=== PATIENT | male | born 2000 | race Two or more races ===

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

== ENCOUNTER 2018-01-11 03:15 | Emergency (ER) | payer MEDICAID ==
[~2018-01-11] VITALS: Ht 193 cm; Wt 111.0 kg
[~2018-01-11 03:15] MED LIST changes: +ALBU8.5H8 INH
[2018-01-11 03:28] VITALS: BP 133/63
[2018-01-11] MEDS ORDERED: predniSONE 20 mg tablet PO ONE (04:15)
[2018-01-11] MEDS ORDERED: albuterol 2.5 MG/3 ML nebule NEB ONE (04:15)
[2018-01-11] MEDS ORDERED: levoFLOXACIN 750MG TABLET PO ONE (05:15)
[2018-01-11] MEDS ORDERED: PRED20TA PO (05:19)
[2018-01-11] MEDS ORDERED: LEVO500T2 PO (05:19)
== END 2018-01-11 05:59 | disposition home or self-care (01) ==
LOC: ER 03:16
DX: J18.9 Pneumonia, unspecified organism (principal); J45.909 Unspecified asthma, uncomplicated; F12.90 Cannabis use, unspecified, uncomplicated; Z79.899 Other long term (current) drug therapy
CPT/HCPCS: 71045; 94640; 94760; 99283; J7512

== ENCOUNTER 2018-03-14 02:40 | Emergency (ER) | payer MEDICAID ==
[~2018-03-14] VITALS: Ht 193 cm; Wt 102.3 kg
[2018-03-14 02:54] VITALS: BP 124/85
[2018-03-14] MEDS ORDERED: METH500T PO (03:22)
== END 2018-03-14 03:41 | disposition home or self-care (01) ==
LOC: ER 02:43
DX: S16.1XXA Strain of muscle, fascia and tendon at neck level, initial encounter (principal); S00.83XA Contusion of other part of head, initial encounter; J45.909 Unspecified asthma, uncomplicated; F12.90 Cannabis use, unspecified, uncomplicated; Z79.899 Other long term (current) drug therapy; W10.8XXA Fall (on) (from) other stairs and steps, initial encounter; Y93.89 Activity, other specified; Y92.89 Other specified places as the place of occurrence of the external cause; Y99.8 Other external cause status
CPT/HCPCS: 99283

== ENCOUNTER 2019-01-19 03:41 | Emergency (ER) | payer MEDICAID ==
[~2019-01-19] VITALS: Ht 182.9 cm; Wt 100.0 kg
[~2019-01-19 03:41] MED LIST changes: +METH500T PO
[2019-01-19 03:51] VITALS: BP 142/104
[2019-01-19] MEDS ORDERED: ketorolac trometh inj. 60 MG/2 ML VIAL IM ONE (04:10)
[2019-01-19] MEDS ORDERED: acetaminophen 325mg tablet PO ONE (05:25)
== END 2019-01-19 05:39 | disposition home or self-care (01) ==
LOC: ER 03:41
DX: R10.9 Unspecified abdominal pain (principal); R07.89 Other chest pain; J45.909 Unspecified asthma, uncomplicated; F12.90 Cannabis use, unspecified, uncomplicated; Z59.0 Homelessness; W17.89XA Other fall from one level to another, initial encounter; Y93.89 Activity, other specified; Y92.89 Other specified places as the place of occurrence of the external cause; Y99.8 Other external cause status
CPT/HCPCS: 71250; 74176; 93005; 96372; 99284; J1885

== ENCOUNTER 2019-03-14 20:29 | Emergency (ER) | payer MEDICAID ==
[~2019-03-14] VITALS: Ht 193 cm; Wt 106.8 kg
[2019-03-14] MEDS ORDERED: ibuprofen tablet 400 MG TABLET PO ONE (20:45)
[2019-03-14] MEDS ORDERED: LIDOcaine 1% w/epiNEPHrine 1:200,000 30ml vial IM ONE (20:50)
[2019-03-14] MEDS ORDERED: LIDOcaine 1% w/EPI 1:200,000 injection 10mL vial IM ONE (20:50)
--- NOTE | 2019-03-14 21:27 | NUR ---
breaking primary RN, Provider Ackerman is in with pt, placing sutures, pt is stable
[2019-03-14 21:59] VITALS: BP 140/67
== END 2019-03-14 22:01 | disposition home or self-care (01) ==
LOC: ER 20:29
DX: S61.412A Laceration without foreign body of left hand, initial encounter (principal); J45.909 Unspecified asthma, uncomplicated; F12.90 Cannabis use, unspecified, uncomplicated; Z59.0 Homelessness; Z79.899 Other long term (current) drug therapy; W25.XXXA Contact with sharp glass, initial encounter; Y93.89 Activity, other specified; Y92.89 Other specified places as the place of occurrence of the external cause; Y99.8 Other external cause status
CPT/HCPCS: 12052; 99284

== ENCOUNTER 2019-03-18 16:35 | Emergency (ER) | payer MEDICAID ==
[~2019-03-18] VITALS: Ht 193 cm; Wt 94.0 kg
[2019-03-18 16:39] VITALS: BP 113/74
[2019-03-18] MEDS ORDERED: CefTRIAXone 1000mg IM Kit (w/lidocaine diluent) IM ONE (16:50)
[2019-03-18] MEDS ORDERED: HYDROcodone/acetaminophen 5mg/325mg tablet PO ONE (16:50)
[2019-03-18] MEDS ORDERED: CEPH250T PO (16:51)
== END 2019-03-18 17:33 | disposition home or self-care (01) ==
LOC: ER 16:35
DX: L03.114 Cellulitis of left upper limb (principal); J45.909 Unspecified asthma, uncomplicated; F12.90 Cannabis use, unspecified, uncomplicated; Z79.899 Other long term (current) drug therapy; Z79.82 Long term (current) use of aspirin; Z56.0 Unemployment, unspecified
CPT/HCPCS: 96372; 99283; J0696

== ENCOUNTER 2019-03-23 16:51 | Emergency (ER) | payer MEDICAID ==
[~2019-03-23] VITALS: Ht 193 cm; Wt 94.0 kg
[~2019-03-23 16:51] MED LIST changes: +CEPH250T PO
[2019-03-23 18:33] VITALS: BP 121/67
== END 2019-03-23 18:05 | disposition home or self-care (01) ==
LOC: ER 16:51
DX: S61.412D Laceration without foreign body of left hand, subsequent encounter (principal); J45.909 Unspecified asthma, uncomplicated; F12.90 Cannabis use, unspecified, uncomplicated; Z59.0 Homelessness; Z91.018 Allergy to other foods; Z79.2 Long term (current) use of antibiotics; Z79.899 Other long term (current) drug therapy; W25.XXXD Contact with sharp glass, subsequent encounter
CPT/HCPCS: 99281; 99282

== ENCOUNTER 2019-06-03 11:38 | Emergency (ER) | payer MEDICAID ==
[~2019-06-03] VITALS: Ht 182.9 cm; Wt 90.9 kg
[~2019-06-03 11:38] MED LIST changes: -CEPH250T PO
[2019-06-03 12:12] VITALS: BP 141/95
== END 2019-06-03 13:51 | disposition home or self-care (01) ==
LOC: ER 11:40
DX: S90.31XA Contusion of right foot, initial encounter (principal); S09.90XA Unspecified injury of head, initial encounter; R10.13 Epigastric pain; J45.909 Unspecified asthma, uncomplicated; F17.200 Nicotine dependence, unspecified, uncomplicated; F12.90 Cannabis use, unspecified, uncomplicated; Z91.018 Allergy to other foods; Z79.899 Other long term (current) drug therapy; W18.2XXA Fall in (into) shower or empty bathtub, initial encounter; Y93.89 Activity, other specified; Y92.89 Other specified places as the place of occurrence of the external cause; Y99.8 Other external cause status
CPT/HCPCS: 70450; 73630; 99284

== ENCOUNTER 2019-07-02 22:25 | Emergency (ER) | payer MEDICAID ==
[~2019-07-02] VITALS: Ht 195.6 cm; Wt 113.6 kg
[2019-07-02 22:44] VITALS: BP 133/63
== END 2019-07-03 01:00 | disposition left against medical advice (07) ==
LOC: ER 22:55
DX: R06.02 Shortness of breath (principal); R06.00 Dyspnea, unspecified; Z53.21 Procedure and treatment not carried out due to patient leaving prior to being seen by health care provider
CPT/HCPCS: 93005

== ENCOUNTER 2019-07-14 22:31 | Emergency (ER) | payer MEDICAID ==
[~2019-07-14] VITALS: Ht 193 cm; Wt 102.3 kg
[2019-07-14] MEDS ORDERED: normal saline 1000ML IV soln IVB ONE (22:45)
[2019-07-14] MEDS ORDERED: ondansetron/PF 4mg/2ml inj IV ONE (22:45)
--- NOTE | 2019-07-14 22:53 | NUR ---
PT REPORTS BLACK TARRY STOOL APPROX 4 HRS AGO
[2019-07-14 23:26] LABS: ALANINE AMINOTRANSFERASE 26 U/L (12-78); ALBUMIN/GLOBULIN RATIO 0.9 (1.1-1.5); ALKALINE PHOSPHATASE 52 IU/L (46-116); ANION GAP 19 (8-16); ASPARTATE AMINO TRANSFERASE 28 U/L (10-37); BILIRUBIN,TOTAL 0.3 MG/DL (0.1-1.0); BLOOD UREA NITROGEN 14 MG/DL (7-18); BUN/CREATININE RATIO 15.7 (5.4-32.0); CALCIUM 9.1 MG/DL (8.5-10.1); CHLORIDE 103 MMOL/L (99-107); CREATININE 0.89 MG/DL (0.60-1.10); GLUCOSE 68 MG/DL (70-104); LIPASE 75 U/L (73-393); POTASSIUM 3.5 MMOL/L (3.5-5.1); SODIUM 141 MMOL/L (135-145); TOTAL CARBON DIOXIDE 19.5 MMOL/L (24-32); TOTAL PROTEIN 8.4 G/DL (6.4-8.2); eGFR > 90 ML/MIN
[2019-07-14 23:33] LABS: BASOPHILS # (AUTO) 0.1 X10'3 (0-0.2); BASOPHILS % (AUTO) 0.5 % (0-1); EOSINOPHILS # (AUTO) 0.1 X10'3 (0-0.9); EOSINOPHILS % (AUTO) 0.8 % (0-6); HEMATOCRIT 44.8 % (42.0-52.0); HEMOGLOBIN 15.3 g/dl (14.0-17.9); LYMPHOCYTES # (AUTO) 1.4 X10'3 (1.1-4.8); LYMPHOCYTES % (AUTO) 7.6 % (21-51); MEAN CORPUSCULAR HGB CONC 34.1 g/dL (33.0-36.5); MEAN CORPUSCULAR VOLUME 87.8 FL (78-98); MEAN PLATELET VOLUME 8.1 FL (7.4-10.4); MONOCYTES % (AUTO) 5.2 % (2-12); NEUTROPHILS % (AUTO) 85.9 % (42-75); PLATELET COUNT 251 X10'3 (140-440); RED CELL DISTRIBUTION WIDTH 14.9 % (11.5-14.5); WHITE BLOOD COUNT 18.6 X10'3 (4.5-11.0)
[2019-07-15] MEDS ORDERED: ONDA8TAB13 PO (00:10)
[2019-07-15 00:25] VITALS: BP 127/74
== END 2019-07-15 00:33 | disposition home or self-care (01) ==
LOC: ER 22:31
DX: E86.0 Dehydration (principal); R10.84 Generalized abdominal pain; J45.909 Unspecified asthma, uncomplicated; K92.0 Hematemesis; Z91.018 Allergy to other foods
CPT/HCPCS: 36415; 74176; 80053; 83690; 85025; 96374; 99284; J2405; J7030

== ENCOUNTER 2019-07-22 16:21 | Emergency (ER) | payer MEDICAID ==
[~2019-07-22] VITALS: Ht 185.4 cm; Wt 90.0 kg
[~2019-07-22 16:21] MED LIST changes: +ONDA8TAB13 PO
[2019-07-22 16:28] VITALS: BP 147/78
== END 2019-07-22 19:30 | disposition left against medical advice (07) ==
LOC: ER 16:22
DX: Z53.21 Procedure and treatment not carried out due to patient leaving prior to being seen by health care provider (principal)

== ENCOUNTER 2019-07-25 05:53 | Emergency (ER) | payer MEDICAID ==
[~2019-07-25] VITALS: Ht 193 cm; Wt 100.0 kg
[2019-07-25 05:54] VITALS: BP 140/63
[2019-07-25] MEDS ORDERED: DOXY100C43 PO (06:10)
[2019-07-25] MEDS ORDERED: PRED20TA PO (06:10)
[2019-07-25] MEDS ORDERED: ALBU18HF2 INH (06:10)
== END 2019-07-25 06:27 | disposition home or self-care (01) ==
LOC: ER 05:54
DX: J06.9 Acute upper respiratory infection, unspecified (principal); J45.901 Unspecified asthma with (acute) exacerbation; Z59.0 Homelessness; Z72.89 Other problems related to lifestyle; Z91.018 Allergy to other foods; Z79.899 Other long term (current) drug therapy
CPT/HCPCS: 99283

== ENCOUNTER 2019-08-01 23:18 | Emergency (ER) | payer MEDICAID ==
[~2019-08-01] VITALS: Ht 182.9 cm; Wt 81.8 kg
[~2019-08-01 23:18] MED LIST changes: +ALBU18HF2 INH; +DOXY100C43 PO
[2019-08-01 23:23] VITALS: BP 114/61
[2019-08-01] MEDS ORDERED: ALBU8.5H8 IH (23:29)
[2019-08-01] MEDS ORDERED: dexamethasone 4mg tablet PO ONE (23:30)
== END 2019-08-01 23:49 | disposition home or self-care (01) ==
LOC: ER 23:18
DX: J45.909 Unspecified asthma, uncomplicated (principal); Z91.018 Allergy to other foods
CPT/HCPCS: 93005; 99283

== ENCOUNTER 2019-09-05 21:34 | Emergency (ER) | payer MEDICAID ==
[~2019-09-05 21:34] MED LIST changes: +ALBU8.5H8 IH; -DOXY100C43 PO
--- NOTE | 2019-09-05 21:45 | NUR ---
Pt observed by this physician underwriter walk out of ED after using ED lobby restroom. This physician underwriter followed Pt out of building and called Pt by name. Pt ignored calls from this physician underwriter and proceeded to cross [facility] and continued to walk off down the street.
== END 2019-09-05 21:45 | disposition left against medical advice (07) ==
LOC: ER 21:35
DX: J45.909 Unspecified asthma, uncomplicated (principal); Z53.21 Procedure and treatment not carried out due to patient leaving prior to being seen by health care provider

== ENCOUNTER 2019-09-08 06:24 | Emergency (ER) | payer MEDICAID ==
[2019-09-09] MEDS ORDERED: ONDA4TAB6 PO (19:24)
[2019-09-09] MEDS ORDERED: ALBU6.7H9 INH (19:24)
== END 2019-09-08 06:40 | disposition left against medical advice (07) ==
LOC: ER 06:24
DX: Z00.8 Encounter for other general examination (principal); Z53.21 Procedure and treatment not carried out due to patient leaving prior to being seen by health care provider

== ENCOUNTER 2019-09-09 17:25 | Emergency (ER) | payer MEDICAID ==
[~2019-09-09] VITALS: Ht 188 cm; Wt 105.0 kg
[2019-09-09 17:28] VITALS: BP 133/62
[2019-09-09] MEDS ORDERED: normal saline 1000ML IV soln IVB ONE (18:40)
[2019-09-09] MEDS ORDERED: ondansetron/PF 4mg/2ml inj IV ONE (18:40)
[2019-09-09] MEDS ORDERED: ipratropium/albuterol 3ml nebule NEB ONE (18:40)
[2019-09-09] MEDS ORDERED: methylPREDNISolone sod succ 125mg/2ml vial IV ONE (18:40)
[2019-09-09 18:52] LABS: BASOPHILS # (AUTO) 0.1 X10'3 (0-0.2); BASOPHILS % (AUTO) 0.8 % (0-1); EOSINOPHILS % (AUTO) 0.6 % (0-6); HEMATOCRIT 44.1 % (42.0-52.0); HEMOGLOBIN 14.8 g/dl (14.0-17.9); LYMPHOCYTES % (AUTO) 12.4 % (21-51); MEAN CORPUSCULAR HEMOGLOBIN 29.9 PG (27.0-31.0); MEAN CORPUSCULAR HGB CONC 33.6 g/dL (33.0-36.5); MEAN CORPUSCULAR VOLUME 89.2 FL (78-98); MEAN PLATELET VOLUME 7.8 FL (7.4-10.4); MONOCYTES # (AUTO) 0.6 X10'3 (0-0.9); MONOCYTES % (AUTO) 7.4 % (2-12); NEUTROPHILS # (AUTO) 6.4 X10'3 (1.8-7.7); NEUTROPHILS % (AUTO) 78.8 % (42-75); PLATELET COUNT 252 X10'3 (140-440); RED BLOOD COUNT 4.94 X10'6 (4.70-6.10); RED CELL DISTRIBUTION WIDTH 15.8 % (11.5-14.5); WHITE BLOOD COUNT 8.1 X10'3 (4.5-11.0)
--- NOTE | 2019-09-09 18:57 | NUR ---
MEDICATIONS PULLED AND HANDED OFF TO Joaquin CONTEH RN
[2019-09-09 19:08] LABS: ALANINE AMINOTRANSFERASE 27 U/L (12-78); ALBUMIN/GLOBULIN RATIO 0.9 (1.1-1.5); ALKALINE PHOSPHATASE 62 IU/L (46-116); ANION GAP 14 (8-16); ASPARTATE AMINO TRANSFERASE 34 U/L (10-37); BILIRUBIN,TOTAL 0.7 MG/DL (0.1-1.0); BLOOD UREA NITROGEN 8 MG/DL (7-18); BUN/CREATININE RATIO 9.5 (5.4-32.0); CALCIUM 10.3 MG/DL (8.5-10.1); CHLORIDE 101 MMOL/L (99-107); CREATININE 0.84 MG/DL (0.60-1.10); GLUCOSE 99 MG/DL (70-104); POTASSIUM 3.9 MMOL/L (3.5-5.1); SODIUM 139 MMOL/L (135-145); TOTAL CARBON DIOXIDE 24.1 MMOL/L (24-32); TOTAL PROTEIN 8.4 G/DL (6.4-8.2); eGFR > 90 ML/MIN
[2019-09-09] MEDS ORDERED: ONDA4TAB6 PO (19:24)
[2019-09-09] MEDS ORDERED: ALBU6.7H9 INH (19:24)
== END 2019-09-09 19:30 | disposition home or self-care (01) ==
LOC: ER 17:26
DX: J45.909 Unspecified asthma, uncomplicated (principal); B34.9 Viral infection, unspecified; R11.2 Nausea with vomiting, unspecified; F17.200 Nicotine dependence, unspecified, uncomplicated; Z72.89 Other problems related to lifestyle; Z59.0 Homelessness; Z91.018 Allergy to other foods; Z79.899 Other long term (current) drug therapy
CPT/HCPCS: 36415; 71046; 80053; 85025; 94640; 96374; 96375; 99284; J2405; J2930; J7030; 94760; 96361

== ENCOUNTER 2020-05-30 04:34 | Emergency (ER) | payer MEDICAID ==
[~2020-05-30] VITALS: Ht 193 cm; Wt 104.5 kg
[~2020-05-30 04:34] MED LIST changes: +ALBU6.7H9 INH; +ONDA4TAB6 PO
[2020-05-30 04:37] VITALS: BP 164/104
[2020-05-30] MEDS ORDERED: normal saline 1000ML IV soln IVB ONE (04:45)
[2020-05-30] MEDS ORDERED: proCHLORperazine 10 MG/2 ml inj IV ONE (04:45)
[2020-05-30 04:58] LABS: BASOPHILS % (AUTO) 0.6 % (0-1); EOSINOPHILS % (AUTO) 0.3 % (0-6); HEMATOCRIT 45.1 % (42.0-52.0); HEMOGLOBIN 15.3 g/dl (14.0-17.9); LYMPHOCYTES # (AUTO) 1.1 X10'3 (1.1-4.8); MEAN CORPUSCULAR HEMOGLOBIN 30.4 PG (27.0-31.0); MEAN CORPUSCULAR VOLUME 89.6 FL (78-98); MONOCYTES # (AUTO) 0.4 X10'3 (0-0.9); NEUTROPHILS # (AUTO) 5.6 X10'3 (1.8-7.7); NEUTROPHILS % (AUTO) 79.1 % (42-75); PLATELET COUNT 260 X10'3 (140-440); RED BLOOD COUNT 5.04 X10'6 (4.70-6.10)
[2020-05-30] MEDS ORDERED: haloperidol lactate 5mg/ml inj IM ONE (05:05)
[2020-05-30] MEDS ORDERED: diphenhydrAMINE 50 mg/ml inj IV ONE (05:05)
[2020-05-30 05:15] LABS: ALANINE AMINOTRANSFERASE 31 U/L (12-78); ALBUMIN 4.3 G/DL (3.4-5.0); ALKALINE PHOSPHATASE 56 IU/L (46-116); ANION GAP 19 (8-16); ASPARTATE AMINO TRANSFERASE 36 U/L (10-37); BILIRUBIN,TOTAL 0.6 MG/DL (0.1-1.0); BLOOD UREA NITROGEN 11 MG/DL (7-18); BUN/CREATININE RATIO 12.9 (5.4-32.0); CALCIUM 9.4 MG/DL (8.5-10.1); CHLORIDE 100 MMOL/L (99-107); CREATININE 0.85 MG/DL (0.60-1.10); GLUCOSE 106 MG/DL (70-104); LIPASE 95 U/L (73-393); POTASSIUM 3.8 MMOL/L (3.5-5.1); SODIUM 139 MMOL/L (135-145); TOTAL CARBON DIOXIDE 20.3 MMOL/L (24-32); TOTAL PROTEIN 8.6 G/DL (6.4-8.2); eGFR > 90 ML/MIN
== END 2020-05-30 05:35 | disposition home or self-care (01) ==
LOC: ER 04:34
DX: R11.2 Nausea with vomiting, unspecified (principal); R10.30 Lower abdominal pain, unspecified; J45.909 Unspecified asthma, uncomplicated; F17.200 Nicotine dependence, unspecified, uncomplicated; F12.90 Cannabis use, unspecified, uncomplicated; Z72.89 Other problems related to lifestyle; Z59.0 Homelessness; Z91.018 Allergy to other foods; Z79.899 Other long term (current) drug therapy
CPT/HCPCS: 36415; 80053; 83690; 85025; 96374; 99283; J0780; J7030

== ENCOUNTER 2022-03-12 16:42 | Emergency (ER) | payer MEDICAID ==
[~2022-03-12 16:42] MED LIST changes: +ALBU6.7H14 INH; -ALBU6.7H9 INH; +ALBU8.5H17 IH; +ALBU8.5H17 INH; -ALBU8.5H8 IH; -ALBU8.5H8 INH
== END 2022-03-12 21:21 | disposition left against medical advice (07) ==
LOC: ER 16:43
DX: R10.9 Unspecified abdominal pain (principal); Z53.21 Procedure and treatment not carried out due to patient leaving prior to being seen by health care provider

== ENCOUNTER 2022-03-29 06:56 | Emergency (ER) | payer MEDICAID | END 2022-03-29 08:06 | disposition left against medical advice (07) | LOC: ER 06:57 | DX: M79.89 Other specified soft tissue disorders (principal); Z53.21 Procedure and treatment not carried out due to patient leaving prior to being seen by health care provider ==

== ENCOUNTER 2022-04-06 11:52 | Emergency (ER) | payer MEDICAID ==
[~2022-04-06] VITALS: Ht 193 cm; Wt 152.3 kg
[2022-04-06 12:34] VITALS: BP 133/83
[2022-04-06] MEDS ORDERED: TETanus/Pertussis (Acell)/Diphther VAC/PF (Tdap-Adult) 0.5ml syringe IMVAC ONE (12:45)
[2022-04-06] MEDS ORDERED: LIDOCAINE 1%/EPI 1:100,000 inj. 10 ML multi-dose vial IJ ONE (12:47)
== END 2022-04-06 17:11 | disposition left against medical advice (07) ==
LOC: ER 11:52
DX: K04.7 Periapical abscess without sinus (principal); J45.909 Unspecified asthma, uncomplicated; F12.90 Cannabis use, unspecified, uncomplicated; Z91.018 Allergy to other foods; Z59.00 Homelessness unspecified
CPT/HCPCS: 99281

== ENCOUNTER 2022-04-06 21:47 | Emergency (ER) | payer MEDICAID ==
[~2022-04-06] VITALS: Ht 193 cm; Wt 150.0 kg
[2022-04-06 22:29] VITALS: BP 137/88
== END 2022-04-07 03:36 | disposition left against medical advice (07) ==
LOC: ER 21:48
DX: L02.01 Cutaneous abscess of face (principal); Z53.21 Procedure and treatment not carried out due to patient leaving prior to being seen by health care provider

== ENCOUNTER 2023-08-25 06:25 | Emergency (ER) | payer MEDICAID ==
[~2023-08-25] VITALS: Ht 193 cm; Wt 139.9 kg
[~2023-08-25 06:25] MED LIST changes: +CHLO25CA10 PO; +IBUP-1986 PO
[2023-08-25 06:34] VITALS: BP 144/87; PULSE 80; RESP 16; TEMP 98; O2SAT 96
== END 2023-08-25 06:57 | disposition home or self-care (01) ==
LOC: ER 06:27
DX: F10.129 Alcohol abuse with intoxication, unspecified (principal); J45.909 Unspecified asthma, uncomplicated; F12.90 Cannabis use, unspecified, uncomplicated; Z91.018 Allergy to other foods; Z79.899 Other long term (current) drug therapy; Z79.1 Long term (current) use of non-steroidal anti-inflammatories (NSAID); Y90.9 Presence of alcohol in blood, level not specified
CPT/HCPCS: 99281

== ENCOUNTER 2024-04-13 17:43 | Emergency (ER) | payer MEDICAID ==
[~2024-04-13 17:43] MED LIST changes: +ACAM333T8 PO; -ALBU18HF2 INH; -ALBU6.7H14 INH; -ALBU8.5H17 IH; -ALBU8.5H17 INH; -CHLO25CA10 PO; -IBUP-1986 PO; -METH500T PO; -ONDA4TAB6 PO; -ONDA8TAB13 PO; -PRED20TA PO
== END 2024-04-13 18:55 | disposition left against medical advice (07) ==
LOC: ER 17:44
DX: R10.84 Generalized abdominal pain (principal); Z53.21 Procedure and treatment not carried out due to patient leaving prior to being seen by health care provider

== ENCOUNTER 2024-04-16 18:11 | Emergency (ER) | payer MEDICAID ==
[~2024-04-16] VITALS: Ht 193 cm; Wt 136.4 kg
[2024-04-16] MEDS ORDERED: DOXY100C43 PO (18:56)
[2024-04-16 19:06] VITALS: BP 130/78; PULSE 88; RESP 16; TEMP 98.2; O2SAT 99
== END 2024-04-16 19:08 | disposition home or self-care (01) ==
LOC: ER 18:11
DX: L73.9 Follicular disorder, unspecified (principal); F10.129 Alcohol abuse with intoxication, unspecified; L03.811 Cellulitis of head [any part, except face]; R22.0 Localized swelling, mass and lump, head; J45.909 Unspecified asthma, uncomplicated; Z88.8 Allergy status to other drugs, medicaments and biological substances; Z59.00 Homelessness unspecified; Z91.018 Allergy to other foods
CPT/HCPCS: 99283

== ENCOUNTER 2024-04-23 06:14 | Emergency (ER) | payer MEDICAID ==
[~2024-04-23] VITALS: Ht 193 cm; Wt 141.6 kg
[~2024-04-23 06:14] MED LIST changes: +DOXY100C43 PO
[2024-04-23 06:17] VITALS: BP 191/97; PULSE 95; RESP 18; O2SAT 95
[2024-04-23 13:54] VITALS: TEMP 98.1
== END 2024-04-23 13:55 | disposition left against medical advice (07) ==
LOC: ER 06:14
DX: L02.91 Cutaneous abscess, unspecified (principal); Z91.018 Allergy to other foods; Z88.8 Allergy status to other drugs, medicaments and biological substances; Z53.21 Procedure and treatment not carried out due to patient leaving prior to being seen by health care provider

== ENCOUNTER 2024-07-11 21:07 | Emergency (ER) | payer MEDICAID ==
[~2024-07-11] VITALS: Ht 193 cm; Wt 114.8 kg
[~2024-07-11 21:07] MED LIST changes: -DOXY100C43 PO
[2024-07-11 21:18] VITALS: BP 154/80; PULSE 70; TEMP 98; O2SAT 99
[2024-07-12] MEDS: orphenadrine citrate 60mg/2ml inj. IM ONE (02:08)
[2024-07-12 02:09] VITALS: RESP 16
[2024-07-12] MEDS: chlordiazePOXIDE 25mg capsule PO ONE (02:09)
[2024-07-12] MEDS: HYDROcodone/acetaminophen 5mg/325mg tablet PO ONE (02:09)
== END 2024-07-12 02:19 | disposition home or self-care (01) ==
LOC: ER 21:08
DX: S90.01XA Contusion of right ankle, initial encounter (principal); J45.909 Unspecified asthma, uncomplicated; F10.129 Alcohol abuse with intoxication, unspecified; F12.90 Cannabis use, unspecified, uncomplicated; Z88.8 Allergy status to other drugs, medicaments and biological substances; V09.9XXA Pedestrian injured in unspecified transport accident, initial encounter; Y93.89 Activity, other specified; Y92.89 Other specified places as the place of occurrence of the external cause; Y99.8 Other external cause status; Y90.9 Presence of alcohol in blood, level not specified
CPT/HCPCS: 73610; 96372; 99283; J2360

== ENCOUNTER 2024-07-18 11:54 | Emergency (ER) | payer MEDICAID ==
[~2024-07-18] VITALS: Ht 193 cm; Wt 117.0 kg
[2024-07-18 12:18] VITALS: BP 155/88; PULSE 94; RESP 16; TEMP 97.9; O2SAT 95
== END 2024-07-18 15:21 | disposition left against medical advice (07) ==
LOC: ER 11:54
DX: F10.239 Alcohol dependence with withdrawal, unspecified (principal); Z88.8 Allergy status to other drugs, medicaments and biological substances; Z91.018 Allergy to other foods; Y90.9 Presence of alcohol in blood, level not specified

== ENCOUNTER 2024-11-01 07:44 | Emergency (ER) | payer MEDICAID ==
[~2024-11-01] VITALS: Ht 193 cm; Wt 136.9 kg
--- NOTE | 2024-11-01 08:23 | Physician Documentation ---
History of Present Illness Chief Complaint: See Chief Complaint Stated Complaint: GENERAL ILLNESS Time Seen by MD: 08:19 Primary Medical Doctor: none HPI This is a gentleman very well known to our emergency department with a multiple visits for alcohol intoxication, alcohol withdrawal, several stays for alcohol withdrawal, self-reported relapse and consumption of alcohol greater than half a gal day, comes in today for evaluation of epigastric abdominal pain, nausea, vomiting after smoking a blunt. He feels that the blunt may has been laced, but also thinks that it might be related to his alcohol consumption. He states that he had he is experiencing epigastric abdominal pain without any particular palliating or aggravating factors, feels generally lousy. Did not attempt to treat his symptoms. He reports that he drank some beer" last night as well as approximately 8-9 shots. Denies chest pain or difficulty breathing. Medication Reconciliation Allergies: Coded Allergies: coconut (Verified Allergy, Unknown, 11/01/24) risperidone (Verified Allergy, Unknown, 07/18/24) ziprasidone (Verified Allergy, Unknown, 07/18/24) Uncoded Allergies: TREE NUTS (Allergy, Unknown, 03/23/19) Scheduled Acamprosate Calcium (Acamprosate Calcium), 2 TAB PO Q8H Past Medical History Past Medical History: Asthma Past Surgical History: no surgical history Patient History: FH: diabetes mellitus MOTHER Other Past Family History: Reviewed, non-contributory Alcohol Use: Alcoholic Drug Use: marijuana Lives with: Family Lives In: Homeless Occupation: employed Review of Systems ROS 10 point review of systems was performed and unless noted above in HPI is negative for acute process/complaint. Physical Exam Vital Signs: Temperature: 97.9, Source: Temporal, Heart Rate: 88, Respiratory Rate: 16, BP: 137/85, Pulse Oximetry: 95, Weight: 136.900 Physical Exam GENERAL: Awake, alert, oriented, GCS 15, no apparent distress, non-toxic appearing, answers questions, follows commands appropriately. High BMI patient examined in triage HEENT: Atraumatic, normocephalic, pupils equal, extraocular muscles intact, sclerae anicteric, mucus membranes moist, oropharynx is clear, no stridor. NECK: supple, full active range of motion, trachea midline, no thyromegaly, no lymphadenopathy, no JVD. CARDIOVASCULAR: regular rate/rhythm, no murmurs/gallops/rubs, Pulses are 2+ in all extremities and symmetric. Capillary refill less than 2 seconds. PULMONARY: Nonlabored, good air movement ,no respiratory distress, speaking in full sentences, clear to auscultation bilaterally, no wheezing, no ronchi, no rales, no accessory muscle use. GASTROINTESTINAL: Soft, non-tender, non-distended, normal active bowel sounds, no organomegaly, no pulsatile masses, no CVA tenderness. NEUROLOGIC: Lucid with normal mental status. Normal facial symmetry. Moves all extremities symmetrically and with purpose. No truncal ataxia. Speech is fluid without evidence of dysarthria or aphasia, no focal deficits appreciated. MUSCULOSKELETAL: There is full range of motion of all extremities. There is no joint pain or joint swelling or joint erythema. There is no muscle pain or tenderness or swelling. EXTREMITIES: warm, well-perfused, no cyanosis, no clubbing, no edema, no acute deformities. Skin: warm, dry, no rashes or lesions, no jaundice, no petechiae orpurpura. No ecchymosis. PSYCHIATRIC: Normal affect, normal insight, normal concentration. Focused exam: [No guarding or rebound] Progress Results/Orders Results/Orders Orders - RIZWAN BELTRAN DO Drug Screen, Urine (11/01/24 08:07) Completed Orders - RIZWAN BELTRAN DO Prochlorperazine Inj (Compazine Inj) (11/01/24 08:10) Vital Signs 11/01/24 07:47 Temp 97.9 Pulse 88 Resp 16 B/P (MAP) 137/85 Pulse Ox 95 Medical Decision Making Findings Facility Status: ED Holds, [facility] process The plan was discussed with the patient, who demonstrates clear understanding of the plan and is in agreement with the plan unless otherwise noted in the chart. All questions have been answered, all concerns were addressed unless otherwise documented. I was available throughout their ED stay for frequent reassessment and questions. Differential Diagnoses (considered and possible or likely): [Differential diagnosis considered includes pancreatitis, alcohol intoxication, alcohol withdrawal, marijuana intoxication, cannabinoid hyperemesis, as well as but less likely acute appendicitis, acute cholecystitis, gastritis, PUD, diverticulitis, mesenteric ischemia, abdominal aortic aneurysm, bowel obstruction, enteritis, colitis, fecal impaction, volvulus, IBS, inflammatory bowel disease, specific food intolerance, peritonitis, perforated viscous, malignancy, UTI, abscess, and abdominal pain NOS. History, physical exam, and wo rkup exclude many of the more serious causes listed above. ] ??Differential Diagnoses (considered and unlikely, not requiring evaluation currently): [] MDM Data Please see HPI for the following: Independent Historians and external Records Review. Historian: [Patient] Independent Historians: ?[] Medication Management: [Reviewed medication list] Social History and determinants: [Reviewed] Please see the body of the note for the following: Any independent interpretations of ECG, imaging studies. All vitals signs/haemodynamics, ordered tests were independently reviewed and interpreted by myself. Nursing triage complaint and vitals reviewed, additional nursing notes were reviewed as available and I agree unless otherwise noted or documented in contradiction in the chart Vital Signs: Independently reviewed Labs: Independently interpreted Imaging: Independently interpreted Old Medical Records: Independently reviewed, see HPI for relevant summary and information Pulse Oximetry: [99%] interpreted as [normal on room air] by me [Outcome Analyst: [Regular Rate, Regular rhythm, no ectopy, NSR] reviewed and interpreted by me] Additionally notably showing: [Hemodynamics reviewed. The patient is not febrile, not tachycardic, no evidence of hypotension respiratory distress. CBC normal metabolic panel notable for mildly elevated bilirubin, transaminitis and alcoholic pattern. Lipase is normal. Toxicology is positive for methamphetamines and THC. Ethanol is negative. Whole] Tests considered but not ordered include: [Imaging does not appear to be necessary given benign abdominal examination and benign labs] Social Determinants of Health Impact: Patient was evaluated in [facility], or [facility] [place] to healthcare due to below par ratio of patient to medical providers. [] Comorbid Conditions Impacting Present Evaluation and Care/Treatment: [Alcoholism, polysubstance abuse] Management Discussions with other Healthcare Providers: [None] Treatment and Disposition Medication Management (Given or considered): [Antiemetics]. See EMR for details Consideration for Hospitalization/Escalation/Deescalation of Care: Admission for observation has been considered, [however the patient is able to tolerate p.o., their symptoms are controlled, they are able to rely on oral medications, and their chief complaint/diagnosis can be managed on outpatient basis.] ?ED Course:?[No clinical deterioration. No vomiting in the ED.] ?Shared decision making:?[Patient is hemodynamically stable for discharge home with follow with their primary care provider. [ ] Specific and cautious return precautions provided and discussed with full understanding. Any incidental findings were also discussed and follow up recommendations given. [] All questions answered. Patient/family were able to verbalize back return precautions. Patient/family agree to plan. Copies of imaging and laboratory studies were provided.] Code status:?FULL Please see the full Electronic Medical Record for full details of nursing documentation, medications list, other records of complete past medical history and conditions, vital signs, laboratory studies, and any radiologic study interpretations by radiologists. Portions of this note were completed using [employer] dictation software and as a result there may exist minor errors in spel ling. I have reviewed elements of past family and social history and agree as included in note. Departure Disposition: 01 HOME / SELF CARE / HOMELESS Impression: Primary Impression: Abdominal pain Additional Impressions: Nausea and vomiting Alcoholism Methamphetamine abuse Condition: Improved Discharge Instructions: Abdominal Pain, Adult Additional Instructions: You were evaluated for abdominal pain and vomiting. Your laboratory workup is unremarkable except at your positive for both marijuana and methamphetamines. Referrals: NO PRIMARY CARE PROVIDER (PCP) Education Educated: Patient Educated regarding: diagnosis, treatment, prognosis Signature Scribe Signature: No scribe Attestation: This note accurately reflects clinical decisions, work performed by myself, DO RUBY Figueroa NICHOLAS M DO Nov 01, 2024 08:23
[2024-11-01 09:31] LABS: MEAN PLATELET VOLUME 7.7 FL (7.4-10.4); RED CELL DISTRIBUTION WIDTH 14.9 % (11.5-14.5)
[2024-11-01 09:49] LABS: CREATININE 0.82 MG/DL (0.60-1.10); TOTAL CARBON DIOXIDE 26.2 MMOL/L (24-32); eCRCL 168 ML/MIN; eGFR > 90 ML/MIN
[2024-11-01 09:50] LABS: URINE AMPHETAMINE SCREEN POSITIVE (Neg); URINE BARBITUATE SCREEN NEGATIVE (Neg); URINE BENZODIAZEPINES SCREEN NEGATIVE (Neg); URINE CANNABINOID SCREEN POSITIVE (Neg); URINE COCAINE SCREEN NEGATIVE (Neg); URINE METHADONE SCREEN NEGATIVE (Neg); URINE OPIATE SCREEN NEGATIVE (Neg); URINE PHENCYCLIDINE SCREEN NEGATIVE (Neg)
[2024-11-01 09:56] LABS: ETHANOL < 10 MG/DL (<10)
[2024-11-01 09:58] LABS: PRO BRAIN NATRIURETIC PEPTIDE < 30 PG/ML (0-125)
[2024-11-01 12:12] VITALS: BP 152/91; PULSE 97; RESP 15; TEMP 98; O2SAT 95
== END 2024-11-01 12:13 | disposition home or self-care (01) ==
LOC: ER 07:45
DX: R10.13 Epigastric pain (principal); R11.2 Nausea with vomiting, unspecified; F15.10 Other stimulant abuse, uncomplicated; F10.229 Alcohol dependence with intoxication, unspecified; J45.909 Unspecified asthma, uncomplicated; F12.90 Cannabis use, unspecified, uncomplicated; F17.200 Nicotine dependence, unspecified, uncomplicated; Y90.9 Presence of alcohol in blood, level not specified; Z88.8 Allergy status to other drugs, medicaments and biological substances; Z79.899 Other long term (current) drug therapy; Z59.00 Homelessness unspecified
CPT/HCPCS: 36415; 80053; 80305; 80320; 83690; 83735; 83880; 84484; 85025; 96372; 99283; J0780

== ENCOUNTER 2025-01-02 21:07 | Emergency (ER) | payer MEDICAID ==
[~2025-01-02] VITALS: Ht 193 cm; Wt 136.4 kg
--- NOTE | 2025-01-02 22:18 | Physician Documentation ---
History of Present Illness ~ Chief Complaint: Seizure Stated Complaint: SZ Time Seen by MD: 22:13 Primary Medical Doctor: No PMD Mode of Arrival: EMS HPI Patient presents to the emergency room for evaluation of seizure-like activity. Patient has history of seizures. He is at a bus stop were pedestrians called for seizure activity. Security did find marijuana and alcohol in his backpack. Medication Reconciliation Allergies: Coded Allergies: coconut (Verified Allergy, Unknown, 11/01/24) risperidone (Verified Allergy, Unknown, 07/18/24) ziprasidone (Verified Allergy, Unknown, 07/18/24) Uncoded Allergies: TREE NUTS (Allergy, Unknown, 03/23/19) Scheduled Acamprosate Calcium (Acamprosate Calcium), 2 TAB PO Q8H Past Medical History Past Medical History: Asthma Past Surgical History: no surgical history Patient History: FH: diabetes mellitus MOTHER Other Past Family History: Reviewed, non-contributory Alcohol Use: Alcoholic Drug Use: marijuana Lives with: Family Lives In: Homeless Occupation: employed Review of Systems ROS All review of systems negative except as per HPI Physical Exam Vital Signs: Temperature: 98.2, Source: Oral, Heart Rate: 107, Respiratory Rate: 16, BP: 132/64, Pulse Oximetry: 95, Weight: 136.360 Oxygen Flow Rate: 0 Physical Exam General: Patient is sleeping, easily arousable in no acute distress. Appears intoxicated Head: Normocephalic and atraumatic. Eyes: Conjunctival injection noted. EOMI. PERRL. ENT: Mucous membranes moist. Neck: Supple, trachea is midline. Chest: Clear to auscultation bilaterally without rales, rhonchi, or wheezes. There is no accessory muscle use or retractions. Cardiac: Tachycardic and regular without murmurs, gallops, or rubs. Progress Results/Orders Results/Orders Orders - ABRAHAM DOMINGUEZ MD Levetiracetam-[id number]/100ml (Levetira (01/02/25 22:40) Completed Orders - ABRAHAM DOMINGUEZ MD Cbc/Diff (01/02/25 22:13) Urinalysis, Cult If Indicated (01/02/25 22:13) BMP (01/02/25 22:13) Drug Screen, Urine (01/02/25 22:13) Ethanol (01/02/25 22:13) Normal Saline 1000ml (0.9% Sodium Chlori (01/02/25 22:20) Levetiracetam-[id number]/100ml (Levetira (01/03/25 08:00) Medications Received in ER Medications (Trade) Dose Ordered Sig/John Route PRN Reason Start Time Stop Time Status Last Admin Dose Admin Sodium Chloride 1,000 ml @ 1,000 mls/hr ONCE ONCE IV 01/02/25 22:20 01/02/25 23:19 DC 01/02/25 22:47 1,000 MLS/HR Levetiracetam 100 ml @ 400 mls/hr ONCE IV 01/02/25 22:40 01/02/25 22:40 400 MLS/HR Vital Signs 01/02/25 01/02/25 01/02/25 01/02/25 21:14 21:35 22:48 23:13 Temp 98.2 Pulse 107 93 Resp 18 16 33 B/P (MAP) 132/64 128/60 (82) Pulse Ox 95 98 O2 Flow Rate 0 Laboratory Tests Test 01/02/25 21:18 01/02/25 22:56 White Blood Count 9.1 Red Blood Count 4.90 Hemoglobin 15.2 Hematocrit 45.1 Mean Corpuscular Volume 92.0 Mean Corpuscular Hemoglobin 31.1 H Mean Corpuscular Hemoglobin Concent 33.8 Red Cell Distribution Width 16.5 H Platelet Count 283 Mean Platelet Volume 7.6 Neutrophils (%) (Auto) 58.9 Lymphocytes (%) (Auto) 29.7 Monocytes (%) (Auto) 7.2 Eosinophils (%) (Auto) 3.6 Basophils (%) (Auto) 0.6 Neutrophils # (Auto) 5.4 Lymphocytes # (Auto) 2.7 Monocytes # (Auto) 0.7 Eosinophils # (Auto) 0.3 Basophils # (Auto) 0.1 CBC Comment Sodium Level 143 Potassium Level 3.6 Chloride Level 105 Carbon Dioxide Level 21.3 L Anion Gap 17 H Blood Urea Nitrogen 14 Creatinine 0.87 Estimated GFR/1.73 m2 > 90 BUN/Creatinine Ratio 16.1 Glucose Level 103 Calcium Level 8.1 L Albumin 3.9 Chemistry Comments Ethyl Alcohol Level 369 H Urine Specimen Description Cln catch midstream Urine Color Yellow Urine Clarity Clear Urine pH 6.0 Urine Specific [place] <=1.005 Urine Protein Negative Urine Glucose (UA) Negative Urine Ketones Negative Urine Occult Blood Negative Urine Nitrite Negative Urine Bilirubin Negative Urine Urobilinogen 0.2 Urine Leukocyte Esterase Negative Urine Culture Indicated Not ind Volume Urine Centrifuged 10 ml Urine Comment Urine Opiates Screen Negative Urine Methadone Screen Negative Urine Fentanyl Screen Negative Urine Barbiturates Screen Negative Urine Phencyclidine Screen Negative Urine Amphetamines Screen Negative Urine Benzodiazepines Screen Negative Urine Cocaine Screen Negative Urine Cannabinoids Screen Positive Drug Screen Comment Medical Decision Making Findings Patient presents to the emergency room with possible seizure activity. Differentials include but are not limited to seizure, intoxication, syncope, metabolic encephalopathy therefore emergent labs ordered. Labs confirm alcohol intoxication. No evidence of head trauma and he had not feel patient requires CT scan of his head. Possible breakthrough seizures. Labs reassuring. He has been loaded with Keppra. He has been monitored in the emergency room for a time until achieving clinical sobriety. He has passed the road test. Responsible drinking habits discussed. No seizure activity while in the emergency room. Departure Disposition: HOME / SELF CARE / HOMELESS Impression: Primary Impression: Alcoholic intoxication Condition: Stable Discharge Instructions: Alcohol Intoxication Referrals: NO PRIMARY CARE PROVIDER (PCP) Signature Scribe Signature: No scribe Attestation: The note accurately reflects work and decisions made by me.Abraham Dominguez MD 01/03/25 00:05 ABRAHAM DOMINGUEZ MD Jan 02, 2025 22:18
[2025-01-02 22:27] LABS: MEAN PLATELET VOLUME 7.6 FL (7.4-10.4); RED CELL DISTRIBUTION WIDTH 16.5 % (11.5-14.5)
[2025-01-02 22:38] LABS: CREATININE 0.87 MG/DL (0.60-1.10); TOTAL CARBON DIOXIDE 21.3 MMOL/L (24-32); eCRCL 158 ML/MIN; eGFR > 90 ML/MIN
[2025-01-02 22:39] LABS: ETHANOL 369 MG/DL (<10)
[2025-01-02] MEDS: levetiracetam-NACL1000mg/100ml 100 ML IV SCH (22:40)
[2025-01-02] MEDS: normal saline 1000ml 1,000 ML IV ONE (22:47)
[2025-01-02 23:19] LABS: LEUKOCYTE ESTERASE ,URINE NEGATIVE (Neg); NITRITES, URINE NEGATIVE (Neg); OCCULT BLOOD,URINE NEGATIVE (Neg)
[2025-01-02 23:21] LABS: URINE AMPHETAMINE SCREEN NEGATIVE (Neg); URINE BARBITUATE SCREEN NEGATIVE (Neg); URINE BENZODIAZEPINES SCREEN NEGATIVE (Neg); URINE CANNABINOID SCREEN POSITIVE (Neg); URINE COCAINE SCREEN NEGATIVE (Neg); URINE METHADONE SCREEN NEGATIVE (Neg); URINE OPIATE SCREEN NEGATIVE (Neg); URINE PHENCYCLIDINE SCREEN NEGATIVE (Neg)
[2025-01-02 23:26] LABS: UA COLLECTION TYPE CLN CATCH MIDSTREAM
[2025-01-03 05:27] VITALS: BP 146/79; PULSE 80; RESP 20; TEMP 98; O2SAT 93
[2025-01-03] MEDS ORDERED: levetiracetam-NACL1000mg/100ml 100 ML IV SCH (08:00)
== END 2025-01-03 05:35 | disposition home or self-care (01) ==
LOC: ER 21:08
DX: F10.129 Alcohol abuse with intoxication, unspecified (principal); R56.9 Unspecified convulsions; J45.909 Unspecified asthma, uncomplicated; F12.90 Cannabis use, unspecified, uncomplicated; Z88.8 Allergy status to other drugs, medicaments and biological substances; Z91.018 Allergy to other foods; Y90.9 Presence of alcohol in blood, level not specified
CPT/HCPCS: 36415; 80048; 80305; 80320; 81003; 85025; 96365; 99285; J1953; J7030

== ENCOUNTER 2025-02-01 06:58 | Emergency (ER) | payer MEDICAID ==
[~2025-02-01] VITALS: Ht 193 cm; Wt 145.4 kg
--- NOTE | 2025-02-01 07:28 | Physician Documentation ---
History of Present Illness General Chief Complaint: ETOH Withdrawl Stated Complaint: ETOH WITHDRAWALS Time Seen by MD: 07:28 Primary Medical Doctor: No PMD History of Present Illness Initial Comments Patient is a 25-year-old male with a history of chronic alcohol use as well as methamphetamine use comes in complaining of feeling shaky and having cold sweats that started around midnight. Patient states his last drink was two days ago. Patient states he is trying to cut down on alcohol. He states he has been nauseous since the events started at midnight proximally 7 hours ago. Patient states he has vomited 6-7 times. Patient denies any fevers he does a has had sweats and chills. Patient's symptoms are moderate and persistent. Medication Reconciliation Allergies: Coded Allergies: coconut (Verified Allergy, Unknown, 02/01/25) risperidone (Verified Allergy, Unknown, 02/01/25) ziprasidone (Verified Allergy, Unknown, 02/01/25) Uncoded Allergies: TREE NUTS (Allergy, Unknown, 03/23/19) Scheduled Acamprosate Calcium (Acamprosate Calcium), 2 TAB PO Q8H Cefpodoxime Proxetil (Vantin), 1 TAB PO Q12H Scheduled PRN Chlordiazepoxide Hcl (Librium), 25 MG PO UD PRN for for anxiety/agitation ONDANSETRON ODT 4mg tablet (Ondansetron Odt), 1 TABLET PO Q6H PRN for nausea/vomiting Past Medical History Past Medical History: Asthma Past Surgical History: no surgical history Other Past Family History: Reviewed, non-contributory Smoking: Cigarettes Alcohol Use: Alcoholic Drug Use: marijuana Lives with: Family Lives In: Homeless Occupation: employed Review of Systems All Other Systems at this time: Reviewed and Negative Physical Exam Physical Exam Vital Signs: Temperature: 97.8, Source: Temporal, Heart Rate: 86, Respiratory Rate: 18, BP: 156/94, Pulse Oximetry: 97, Weight: 145.400 Oxygen Flow Rate: 0 Physical Exam VITALS: Reviewed and as above. GENERAL: Alert, no apparent distress. HEENT: Normocephalic, atraumatic, PERRL, EOMI, dry mucosa, no erythema RESPIRATORY: Lungs clear, normal breath sounds, no respiratory distress. CHEST: No accessory muscle use, no retractions CV: Regular rate, rhythm, no edema, no murmur, No: JVD GI: Soft, non-tender, bowels sounds present, no rebound, guarding, or rigidity BACK: No CVA tenderness, or swelling MUSCULOSKELETAL: No deformities, no edema SKIN: Warm and dry, no rash NEURO: Oriented x4, No motor or sensory deficit PSYCH: Normal mood and affect, no agitation Progress Results/Orders Results/Orders Completed Orders - OHLKAROLINA,AMADA Hatch MD Cbc/Diff (02/01/25 07:37) Normal Saline 1000ml (0.9% Sodium Chlori (02/01/25 07:40) Normal Saline 1000ml (0.9% Sodium Chlori (02/01/25 07:40) Metoclopramide Inj (Reglan Inj) (02/01/25 07:40) Diphenhydramine Inj (Benadryl Inj.) (02/01/25 07:40) BMP (02/01/25 07:37) Lorazepam Tablet (Ativan Tablet) (02/01/25 07:40) Procalcitonin (02/01/25 08:08) Ua W/Microscopic, Cult If Ind (02/01/25 07:20) Cult Urine + [address] (02/01/25 08:48) Ceftriaxone 2gm/D5w 50ml Bag (Rocephin 2 (02/01/25 08:55) Vital Signs 02/01/25 02/01/25 02/01/25 02/01/25 07:08 08:34 08:48 10:35 Temp 97.8 98.3 Pulse 86 96 98 Resp 18 27 16 17 B/P (MAP) 156/94 179/103 (128) 128/74 Pulse Ox 97 99 96 O2 Flow Rate 0 0 Laboratory Tests Test 02/01/25 07:20 02/01/25 07:47 Urine Specimen Description Cln catch midstream Urine Color Yellow Urine Clarity Clear Urine pH 6.0 Urine Specific [place] >=1.030 Urine Protein >=300 H Urine Glucose (UA) Negative Urine Ketones >=80 Urine Occult Blood Small Urine Nitrite Positive H Urine Bilirubin Small Urine Urobilinogen 1.0 Urine Leukocyte Esterase Negative Urine RBC 3-10 Urine WBC 20-30 H Urine Squamous Epithelial Cells Few Urine Bacteria 2+ Urine Mucus Moderate Urine Culture Indicated Indicated Volume Urine Centrifuged 10 ml Urine Comment White Blood Count 7.4 Red Blood Count 4.88 Hemoglobin 14.7 Hematocrit 43.7 Mean Corpuscular Volume 89.5 Mean Corpuscular Hemoglobin 30.2 Mean Corpuscular Hemoglobin Concent 33.7 Red Cell Distribution Width 14.7 H Platelet Count 248 Mean Platelet Volume 7.6 Neutrophils (%) (Auto) 82.7 H Lymphocytes (%) (Auto) 11.6 L Monocytes (%) (Auto) 4.2 Eosinophils (%) (Auto) 0.9 Basophils (%) (Auto) 0.6 Neutrophils # (Auto) 6.1 Lymphocytes # (Auto) 0.9 L Monocytes # (Auto) 0.3 Eosinophils # (Auto) 0.1 Basophils # (Auto) 0.0 CBC Comment Sodium Level 134 L Potassium Level 3.7 Chloride Level 96 L Carbon Dioxide Level 21.9 L Anion Gap 16 Blood Urea Nitrogen 13 Creatinine 0.81 Estimated GFR/1.73 m2 > 90 BUN/Creatinine Ratio 16.0 Glucose Level 75 Calcium Level 8.6 Albumin 4.0 Procalcitonin < 0.05 Chemistry Comments Microbiology Date/Time Source Procedure Growth Status 02/01/25 08:48 Urine Clean Catch Midstream Urine Culture - Final MIXED MICHAEL ISOLATED.... Complete Medical Decision Making Findings The patient is a 25 year old male who is three days out from his last drink of alcohol who complains of cold sweats nausea and feeling like he is going into withdrawal. The patient was not tachycardic his field operations supervisor was a sinus rhythm. He was not significantly tremulous. The patient was treated for his nausea and his clinical dehydration with fluids and medications. The patient will be offered a prescription for Librium for alcohol withdrawal. He was also found to have a urinary tract infection he will be treated with antibiotics. The patient was given a dose of ceftriaxone here in the emergency room. Prior hospitalizations have been reviewed. The patient's pulse oximetry was interpreted as normal and adequate in his field operations supervisor was interpreted as a sinus rhythm. Departure Impression: Primary Impression: Alcohol withdrawal syndrome Qualified Codes: F10.930 - Alcohol use, unspecified with withdrawal, unc omplicated Additional Impression: Urinary tract infection Qualified Codes: N39.0 - Urinary tract infection, site not specified Discharge Instructions: Alcohol Withdrawal Syndrome, Alcohol Withdrawal Syndrome, Inad-yz-[id number] Referrals: NO PRIMARY CARE PROVIDER (PCP) Prescriptions Chlordiazepoxide Hcl (Librium) 25 Mg Capsule 25 MG PO UD PRN for for anxiety/agitation, #32 CAP use 2 tablets by mouth 3 times a day for 2 days then 2 tablets twice a day for 2 days then 1 tablet 3 times a day for 2 days then one tablet twice a day for 2 days then 1 tablet a day for 2 days Prov: AMADA LOTT MD 02/01/25 ONDANSETRON ODT 4mg tablet (ONDANSETRON ODT) 4 Mg Tab.rapdis 1 TABLET PO Q6H PRN for nausea/vomiting, #12 TABLET Prov: AMADA LOTT MD 02/01/25 Cefpodoxime Proxetil (Vantin) 200 Mg Tablet 1 TAB PO Q12H for 14 Days, #28 TAB Prov: AMADA LOTT MD 02/01/25 Signature Scribe Signature: no scribe Attestation: The note accurately reflects work and decisions made by me.Amada Lott MD 02/03/25 09:44 AMADA LOTT MD Feb 01, 2025 07:28
[2025-02-01 08:07] LABS: MEAN PLATELET VOLUME 7.6 FL (7.4-10.4); RED CELL DISTRIBUTION WIDTH 14.7 % (11.5-14.5)
[2025-02-01 08:18] LABS: CREATININE 0.81 MG/DL (0.60-1.10); TOTAL CARBON DIOXIDE 21.9 MMOL/L (24-32); eCRCL 168 ML/MIN; eGFR > 90 ML/MIN
[2025-02-01 08:32] LABS: LEUKOCYTE ESTERASE ,URINE NEGATIVE (Neg); NITRITES, URINE POSITIVE (Neg); OCCULT BLOOD,URINE SMALL (Neg)
[2025-02-01 08:44] LABS: UA COLLECTION TYPE CLN CATCH MIDSTREAM
[2025-02-01 08:46] LABS: MUCUS STRANDS MODERATE /LPF (Neg); SQUAMOUS EPITHELIAL CELL,UR FEW /LPF (FEW)
[2025-02-01] MEDS: metoclopramide 5 mg/ml inj IV ONE (08:49)
[2025-02-01] MEDS: normal saline 1000ML IV soln IVB ONE ×2 (08:53→09:44)
[2025-02-01] MEDS ORDERED: CHLO25CA10 PO (09:24)
[2025-02-01] MEDS ORDERED: ONDA-243 PO (09:24)
[2025-02-01] MEDS ORDERED: CEFP200T13 PO (09:24)
[2025-02-01] MEDS: CefTRIAXone 2gm/D5W 50ml BAG 50 ML IV ONE (09:44)
[2025-02-01 10:35] VITALS: BP 128/74; PULSE 98; RESP 17; TEMP 98.3; O2SAT 96
== END 2025-02-01 10:37 | disposition home or self-care (01) ==
LOC: ER 06:58
DX: F10.239 Alcohol dependence with withdrawal, unspecified (principal); N39.0 Urinary tract infection, site not specified; J45.909 Unspecified asthma, uncomplicated; F12.90 Cannabis use, unspecified, uncomplicated; Z88.8 Allergy status to other drugs, medicaments and biological substances; Z91.018 Allergy to other foods; Y90.9 Presence of alcohol in blood, level not specified
CPT/HCPCS: 36415; 80048; 81001; 84145; 85025; 87088; 96361; 96365; 96375; 99284; J0696; J1200; J2765; J7030

== ENCOUNTER 2025-02-03 09:05 | Inpatient (IN) | payer MEDICAID ==
[~2025-02-03] VITALS: Ht 193 cm; Wt 142.3 kg
[2025-02-03] VITALS (9 sets, daily range): BP systolic 117–149; BP diastolic 60–91; PULSE 60–75; RESP 14–18; TEMP 97.3–98; O2SAT 95–98
[~2025-02-03 09:05] MED LIST changes: +CEFP200T13 PO; +CHLO25CA10 PO; +ONDA-243 PO
[2025-02-03] MEDS ORDERED: loperamide 2mg capsule PO PRN (11:50)
[2025-02-03] MEDS ORDERED: mag hydrox/Alum hydrox/simeth 30ml oral suspension PO PRN (11:50)
--- NOTE | 2025-02-03 12:49 | ELECTROCARDIOGRAPH REPORT ---
[facility] Test Date: 2025-02-03 Test Time: 12:47:28 Pat Name: ANANYA MARTINEZ Department: [facility] Patient ID: [facility]-[id number] Room: 323 A Gender: M Housekeeping Worker: MEGAN : 2000 Requested By: HERO HUFF Order Number: [id number] Reading MD: Dr. Eren Otero Measurements Intervals [place] Rate: 59 P: 46 [place]: 153 QRS: 64 QRSD: 104 T: 10 QT: 448 QTc: 444 Interpretive Statements Sinus rhythm Probable left ventricular hypertrophy ST elev, probable normal early repol pattern Tall T waves Electronically Signed On 02-04-2025 8:47:[address] Eren Otero Please click the below link to view image of tracing.
[2025-02-03] MEDS ORDERED: ondansetron 4mg rapidly disintigrating tab PO PRN (13:10)
[2025-02-03 15:26] LABS: LEUKOCYTE ESTERASE ,URINE NEGATIVE (Neg); NITRITES, URINE NEGATIVE (Neg); OCCULT BLOOD,URINE NEGATIVE (Neg)
[2025-02-03 15:33] LABS: UA COLLECTION TYPE CLN CATCH MIDSTREAM
[2025-02-03] MEDS ORDERED: ALBU8HFA INH (15:34)
--- NOTE | 2025-02-03 16:13 | HISTORY AND PHYSICAL ---
History of Present Illness Primary Medical Doctor: No PMD History of Present Illness H&P Admission date: 02/03/25 Length of stay: 0 days Status: 5150 CC: Admitted on 5150 For a series of ideation, he reached out to mobile crisis team saying that he wants to jump in front of a car to kill himself because he feels hopeless. has had previous in time since including running into traffic, almost jumping off a bridge. his previously been held in psychiatric units in [facility] for dangerous to self. has been struggling with depression anxiety for many years history of alcoholism hasn't been drinking for the past few days is also trying to detox and getting to rehab Denies AVH, states he has had episodes of psychosis only when detoxing from alcohol. States he didnt want to quit but also its killing him, so he had to choose to slowly or quickly. States he has felt depressed for as long as he can remember, states that everynight he will go to be wondering whats the point of trying, whats the point of waking up again. Endorses constant suicide thoughts thsi past year, but intermitting throughout his life. At age 12/11 his mother and that initiated thoughts that he would better off . Endorses some motivation to live to get rich. He feels motivated to get off the streets. Endorses depression most days, endorses significant hopelessness and helpless. High anxiety, especially socially, trouble trusting, anxiety manageable when alone. Will distract himself with drugs, avoiding life, watching comedy. Endorses worried racing thoughts constantly. Endorses trouble falling asleep and staying asleep because his mind wont stop racing, states he also has sleep paralysis endorses nightmares. Endorses significantly irritability/anger- Im always angry, will be triggered by people complaining. Endorses intrusive memories of past events, endorses flashbacks. States he use to do Kickboxing classes which helped. But since he turned 16 he has had no structure and is now a felon so he cant go to the . Psychiatric History Age of initial treatment: age [age] Outpatient: hx of therapy medication Inpatient: x2- [facility] Historical Diagnoses (w/year): schizophrenia, bipolar, depression, anxiety, PTSD Access to firearms: denies Hx of suicide attempts: x2- both in 2020 (in [place], far away from home, was a bad year), was able to jump of a bridge and then the chaplain resident stopped him, slit wrists multiple times Hx of self-harm: endorses- hx of cutting, none for the past few years Hx of violence: violence towards law enforcement led to detention time. Legal hx: felon - in [place], lots of detention Historical Psych Medications: endorses hx of medication but dosnt recall specific Substance Use History: States he was age 11 when he first started using drugs Over the counter medications: denies Caffeine: denies Nicotine: cigarettes- ppd Alcohol: history of alcohol use disorder with prior alcohol withdrawal seizures Cannabis: THC- daily smoking- estimtes he smokes lb (4 ounces a month) states he typically he can do 12 dab cartridges a month Stimulants: cocaine, meth- esitmates on average 1-3 times a week Opioids: denies Hx of IVDU: denies Other (Inhalants, Hypnotics, Hallucinogens, Rx): nitrous oxide- whippets way too much up to 3 cans a week DUI: x1 in 2021 treatment/rehab hx: x4 times No known hx of meeting criteria for a substance use disorder - - Social history Born in [place] and raised all over [place]. Been in 20 group homes from ages [age]. Residential treatment programs. Adverse childhood experiences: 01/01 Has two living brothers and older sister who are live, feels close with brothers. Brothers live in [place]. : Highest grade completed: graduated high school Family History Mental Illness Alcohol/other drug use: Suicide completions: brother - Current Environment Living Situation: Homeless [place] Relationships: Mother, father, grandmother have all , his closest brother completed suicide last year Hobbies/ Other interests: comedy, video game - Work Current occupation: is currently enrolled in [employer]- was taking [employer] classes Income/rent/concerns about paying bills or feeding family: endorses Hx: denies - - Mental Status Evaluation General Appearance: hospital scrubs, poorly groomed, Eye contact: intermittent Demeanor: cooperative, Orientation: to person, place, time, situation Speech: Appropriate rate/rhythm/volume Psychomotor Activity: within normal range Abnormal Body Movements: none observed Gait: steady Mood: depressed Affect: blunted Suicidality:Passive thoughts of Homicidally: denies Thought content: consistent with social norms Thought process: logical, linear Thought perceptions: no perceptual disorder noted Memory: appears intact Attention: appear attentive Insight: good Judgment: good - - Current Medical Problems: Medical History Cardiac HX: denies TBI Hx: multiple - LOC more than 10 times. Seizure Hx: endorses r/t etoh withdrawal DEJUAN Hx: denies - - Diagnoses MDD, recurrent, severe PTSD MARINE Alcohol use disorder Polysubstance use disorder Tobacco use disorder - Assessment Based on initial evaluation, including interview and history obtained today, patient appears to meet criteria for MDD, recurrent, severe, generalized anxiety disorder, PTSD alcohol use disorder probably substance use disorder. He has expensive childhood trauma which is likely a contributing factor for the severity of a psychiatric conditions and substance use, was in foster care from ages 10 to 16 he reports enough to 20 placements received no support or structure after he turned 16 and became an adult which led to worsening addiction, legal difficulties depression and helplessness. Presents in the context of worsening depression with suicide thoughts with plans increase substance use, now withdrawing from alcohol. describes that he's reach the point in his life where he would like to further explore resources to change depression as well as substance use. we'll start the appropriate to treat depression ideally help with energy mood motivation. will start see what protocol for alcohol withdrawal. discussed plan of attaining for the treatments after stabilization at an inpatient drug and rehab. - Safety risk: low risk of imminent self-harm, low risk of externalized violent behaviors Plan Start buproprion XL 150 mg po qd CIWA Protocol Maintenance therapy for tobacco use disorder: schedule nicotine patch, prn nicotine lozenges Continue Q15 min checks Continue Groups/Milieu Engagement Discharge Plan: to home with scheduled follow ups for outpatient therapy and medication management No access Spent approximately 90 minutes reviewing records and test results, assessing and treatment planning, completing care coordination and documenting the encounter. Discussed risks, including possible adverse effects, and benefits of treatment recommendations including no treatment. Voice recognition software may have been used to dictate this note. There may be errors due to use of such software. Reporting of serious errors is appreciated. Allergies: Coded Allergies: coconut (Verified Allergy, Unknown, 02/01/25) risperidone (Verified Allergy, Unknown, 02/01/25) ziprasidone (Verified Allergy, Unknown, 02/01/25) Uncoded Allergies: TREE NUTS (Allergy, Unknown, 03/23/19) Past Surgical History Past Surgical History: no surgical history Past Family History Patient History: FH: bipolar disorder FATHER Brother FH: depression MOTHER Brother (2) FH: diabetes mellitus MOTHER FH: suicide Brother (2) Past Social History Smoking: Cigarettes Alcohol Use: Alcoholic Drug Use: Marijuana Lives with: Family Lives In: Homeless Occupation: employed Assessment/Plan Problems/Diagnosis: (1) MDD (major depressive disorder), recurrent episode, severe (2) Polysubstance (excluding opioids) dependence, daily use (3) PTSD (post-traumatic stress disorder) (4) Alcohol use disorder CODING VISIT-PSYCHIATRY Date of Service: Feb 03, 2025 Billing Provider: HERO HUFF MD Psych Common Visit Codes: [id number] DIAG TUYET Alvarado/MED SRVCS VIDAL KNOX DNP Feb 03, 2025 16:13
[2025-02-03] MEDS ORDERED: albuterol 2.5 MG/3 ML nebule NEB PRN (16:30)
[2025-02-04 07:00] VITALS: RESP 16; O2SAT 98
[2025-02-04] MEDS: multivitamins, therapeutics tablet PO SCH (07:27)
[2025-02-04] MEDS: BUPROPION HCL 150MG XL 24 HR 150 MG TAB PO SCH (07:28)
[2025-02-04 08:00] VITALS: BP 110/64; PULSE 60; RESP 16; TEMP 97.6; O2SAT 98
[2025-02-04] MEDS: nicotine 21mg patch - 24 hr TD SCH (08:13)
[2025-02-04 10:38] LABS: MEAN PLATELET VOLUME 7.9 FL (7.4-10.4); RED CELL DISTRIBUTION WIDTH 14.6 % (11.5-14.5)
[2025-02-04 10:46] LABS: INR 1.0 INR
[2025-02-04 11:04] LABS: CHOL/HDL RATIO 5.0 (0.00-4.99); CREATININE 0.74 MG/DL (0.60-1.10); LDL CHOLESTEROL 163 MG/DL (50-100); PHOSPHORUS 4.3 MG/DL (2.3-4.5); TOTAL CARBON DIOXIDE 26.3 MMOL/L (24-32); eCRCL 184 ML/MIN; eGFR > 90 ML/MIN
[2025-02-04] MEDS: NICOTINE POLACRILEX 2 MG LOZENGE BC PRN (13:54)
--- NOTE | 2025-02-04 17:59 | PROGRESS NOTE ---
Progress Note Dictate Providers to CC ~ Progress Note: Follow up Admission date: 02/03/25 Length of stay: 1 day Status: 5250 HPI: Admitted on 5150 For a series of ideation, he reached out to mobile crisis team saying that he wants to jump in front of a car to kill himself because he feels hopeless. has had previous in time since including running into traffic, almost jumping off a bridge. his previously been held in psychiatric units in [facility] for dangerous to self. has been struggling with depression anxiety for many years history of alcoholism hasn't been drinking for the past few days is also trying to detox and getting to rehab Denies AV, states he has had episodes of psychosis only when detoxing from alcohol. States he didnt want to quit but also its killing him, so he had to choose to slowly or quickly. States he has felt depressed for as long as he can remember, states that everynight he will go to be wondering whats the point of trying, whats the point of waking up again. Endorses constant suicide thoughts thsi past year, but intermitting throughout his life. At age [age] his mother and that initiated thoughts that he would better off . Endorses some motivation to live to get rich. He feels motivated to get off the streets. Endorses depression most days, endorses significant hopelessness and helpless. High anxiety, especially socially, trouble trusting, anxiety manageable when alone. Will distract himself with drugs, avoiding life, watching comedy. Endorses worried racing thoughts constantly. Endorses trouble falling asleep and staying asleep because his mind wont stop racing, states he also has sleep paralysis endorses nightmares. Endorses significantly irritability/anger- Im always angry, will be triggered by people complaining. Endorses intrusive memories of past events, endorses flashbacks. States he use to do Kickboxing classes which helped. But since he turned 16 he has had no structure and is now a felon so he cant go to the . Psychiatric History Age of initial treatment: age 4-7 Outpatient: hx of therapy medication Inpatient: x2- [facility] Historical Diagnoses (w/year): schizophrenia, bipolar, depression, anxiety, PTSD Access to firearms: denies Hx of suicide attempts: x2- both in 2020 (in [place], far away from home, was a bad year), was able to jump of a bridge and then the supervisor [employer] plant stopped him, slit wrists multiple times Hx of self-harm: endorses- hx of cutting, none for the past few years Hx of violence: violence towards law enforcement led to correction time. Legal hx: felon - in [place], lots of retirement Historical Psych Medications: endorses hx of medication but dosnt recall specific Substance Use History: States he was age 11 when he first started using drugs Over the counter medications: denies Caffeine: denies Nicotine: cigarettes- ppd Alcohol: history of alcohol use disorder with prior alcohol withdrawal seizures Cannabis: THC- daily smoking- estimtes he smokes lb (4 ounces a month) states he typically he can do 12 dab cartridges a month Stimulants: cocaine, meth- esitmates on average 1-3 times a week Opioids: denies Hx of IVDU: denies Other (Inhalants, Hypnotics, Hallucinogens, Rx): nitrous oxide- whippets way too much up to 3 cans a week DUI: x1 in 2021 treatment/rehab hx: x4 times No known hx of meeting criteria for a substance use disorder Social history Born in [place] and raised all over [place]. Been in 20 group homes from ages [age]. Residential treatment programs. Adverse childhood experiences: 01/01 Has two living brothers and older sister who are live, feels close with brothers. Brothers live in [place] [facility]. : Highest grade completed: graduated high school Family History Mental Illness: multiple family members Alcohol/other drug use: multiple family members Suicide completions: brother Current Environment Living Situation: Homeless [place] Relationships: Mother, father, grandmother have all , his closest brother completed suicide last year Hobbies/ Other interests: comedy, video game Current occupation: is currently enrolled in [employer]- was taking [employer] classes Income/rent/concerns about paying bills or feeding family: endorses Today on Assessment: Ongoing depression, withdrawn, high social anxiety. Interested in starting quetiapine Psychiatric Medications: Bupropion XL 150 Recent PRNS: Lorazepam Hydroxyzine Trazodone Side Effects: Denies No evidence of TD, EPS AIMs: 0 Review of Psychiatric Symptoms: Mood: depressed irritable mood, dosnt want to be around people Suicide/self-harm: denies Sleep: consistent poor sleep, would like to restart quetiapine, nightmares of violence/congruent with past trauma Appetite: very hungry, needs double portion. Energy: poor- Anxiety: high anxiety, especially social anxiety 9/10 on average - anxiety really interfers with his Irritability: significant irritability Homicidal/Anger: denies Hallucinations/Paranoia: denies Trauma symptoms: nightmares Symptoms related to substance withdrawal: significant- see [facility] Mental Status Evaluation General Appearance: hospital scrubs, poorly groomed, Eye contact: intermittent Demeanor: cooperative, Orientation: to person, place, time, situation Speech: Appropriate rate/rhythm/volume Psychomotor Activity: within normal range Abnormal Body Movements: none observed Gait: steady Mood: depressed Affect: blunted Suicidality:Passive thoughts of Homicidally: denies Thought content: consistent with social norms Thought process: logical, linear Thought perceptions: no perceptual disorder noted Memory: appears intact Attention: appear attentive Insight: good Judgment: good - - Current Medical Problems: Alcohol Withdrawal Protocol- Medical History Cardiac HX: denies TBI Hx: multiple - LOC more than 10 times. Seizure Hx: endorses r/t etoh withdrawal DEJUAN Hx: denies - - Diagnoses MDD, recurrent, severe PTSD MARINE Alcohol use disorder Polysubstance use disorder Tobacco use disorder - Assessment Peyman is a 25 year old who presents for further evaluation and treatment for MDD, recurrent, severe, generalized anxiety disorder, PTSD alcohol use disorder, polysubstance use disorder. He has extensive childhood trauma which is likely a contributing factor for the severity of a psychiatric conditions and substance use, was in foster care from ages 10 to 16 he reports enough to 20 placements received no support or structure after he turned 16 and became an adult which led to worsening addiction, legal difficulties depression and helplessness. Presents in the context of worsening depression with suicide thoughts with plans increase substance use, now withdrawing from alcohol. describes that he's reach the point in his life where he would like to further explore resources to change depression as well as substance use. Will start bupropion to treat depression ideally help with energy mood motivation. We'll start with typing to augment treatment for anxiety, sleep, PTSD. will start prazosin for nightmares. Will continue [facility] protocol for alcohol withdrawal. discussed plan of attaining for the treatments after stabilization at an inpatient drug and rehab. - Safety risk: low risk of imminent self-harm, low risk of externalized violent behaviors Plan Start quetiapine 50 mg po qhs, repeat x1 Start prazosin 1 mg po qhs for nightmares Continue bupropion XL 150 mg po qd CIWA Protocol Maintenance therapy for tobacco use disorder: schedule nicotine patch, prn nicotine lozenges Continue Q15 min checks Continue Groups/Milieu Engagement Discharge Plan: to home with scheduled follow ups for outpatient therapy and medication management No access Spent approximately 30 minutes reviewing records and test results, assessing and treatment planning, completing care coordination and documenting the encounter. Discussed risks, including possible adverse effects, and benefits of treatment recommendations including no treatment. Voice recognition software may have been used to dictate this note. There may be errors due to use of such software. Reporting of serious errors is appreciated. Antibiotic Ordered?: No Objective Vitals Vital Signs Date Time Temp Pulse Resp B/P (MAP) Pulse Ox O2 Delivery O2 Flow Rate FiO2 02/04/25 14:52 16 02/04/25 08:00 97.6 60 110/64 (79) 98 Room Air Lab Results: 02/04/25 1003 02/04/25 1003 Coagulation Studies Laboratory Tests Test 02/04/25 10:03 Prothrombin Time 10.6 SECONDS (9.0-12.0) INR International Normalized Ratio 1.0 INR Coagulation Comments Problem\Assessment\Plan Problems/Diagnosis: (1) MDD (major depressive disorder), recurrent episode, severe (2) Polysubstance (excluding opioids) dependence, daily use (3) PTSD (post-traumatic stress disorder) (4) Alcohol use disorder CODING VISIT-PSYCHIATRY Date of Service: Feb 04, 2025 Billing Provider: VIDAL KNOX DNP Psych Common Visit Codes: [id number] INP/OBS CARE(High) VIDAL KNOX DNP Feb 04, 2025 17:59
--- NOTE | 2025-02-04 18:21 | HISTORY AND PHYSICAL-Residence ---
History & Physical Providers to CC Resident Creating Document: DESTINEE CUNNINGHAM, RES CC: SATHISH العراقي MD ~ History of Present Illness Primary Medical Doctor: No PMD Reason for Admit\Complaint: Suicidal ideation History of Present Illness Admitted on 5150 For a series of ideation, he reached out to mobile crisis team saying that he wants to jump in front of a car to kill himself because he feels hopeless. Previously been held in psychiatric units in [facility] for dangerous to self. has been struggling with depression anxiety for many years history of alcoholism hasn't been drinking for the past few days is also trying to detox and getting to rehab. Allergies: Coded Allergies: coconut (Verified Allergy, Unknown, 02/01/25) risperidone (Verified Allergy, Unknown, 02/01/25) ziprasidone (Verified Allergy, Unknown, 02/01/25) Uncoded Allergies: TREE NUTS (Allergy, Unknown, 03/23/19) Home Medications Home Medications Active Reported Pro-Air Inhaler (Albuterol) 8.5 Gm Inhaler 2 Puffs INH Q4HPRN PRN Past Medical History Past Medical History Depression Anxiety Suicidal ideation Schizophrenia Bipolar disorder Depression Family History Family History: FH: bipolar disorder FATHER Brother FH: depression MOTHER Brother (2) FH: diabetes mellitus MOTHER FH: suicide Brother (2) Past Social History Social History Comment Patient states that he started using drugs since he was 11 years History of alcohol use disorder with multiple trials of prior alcohol withdrawal seizures Methamphetamine use Inhalant use Smoking: Cigarettes Alcohol Use: Alcoholic Drug Use: Marijuana Lives with: Family Lives In: Homeless Occupation: employed Exam Vitals: Vital Signs Date Time Temp Pulse Resp B/P (MAP) Pulse Ox O2 Delivery O2 Flow Rate FiO2 02/04/25 14:52 16 02/04/25 08:00 97.6 60 110/64 (79) 98 Room Air General: General: Awake, oriented to person, place and time; left-sided big mass found on scalp-most likely calcification nodule post injury seven years ago HEENT: Conjunctive are pink, sclerae clear, no icterus, pupil is equal in both sides, reactive to light, no ear discharge, no pharyngeal erythema or an edema. Neck: Supple, no JVD, no lymphadenopathy and thyromegaly. Chest: Equal air entry on both lungs, no additional sounds no rhonchi no wheezing at the moment. Cardiovascular: S1-S2 regular sinus rhythm and, regular rate, no gallops, no rubs, no murmurs Abdomen: No visible peristalsis, Bowel sounds present on auscultation, soft, no tenderness, no guarding, no rigidity Extremities: No obvious deformities, no pitting edema bilaterally, capillary refill intact, peripheral pulsations are intact on both sides Neurologic: Mental status: alert and conscious, oriented to place, person and time, preserved memory, normal speech. No focal neurological deficits Musculoskeletal: No joint swelling, deformities, inflammations, and no scoliosis and back tenderness Skin: Warm and dry. Dry oral mucosa. Diagnostic Data Last Recorded Lab Results: 02/04/25 1003 02/04/25 1003 Diagnostic Data: Laboratory Tests Test 02/04/25 10:03 Prothrombin Time 10.6 SECONDS (9.0-12.0) INR International Normalized Ratio 1.0 INR Coagulation Comments Advance Care Planning Advanced Care plannin - 30 Minutes Additional Plan History of MDD Generalized anxiety disorder PTSD Bipolar disorder Manage as per psychiatric team Alcohol use disorder, Tobacco use disorder Methamphetamine use -patient is on CIWA protocol Scheduled nicotine patch Patient stated that he has a couple of episodes of headache once a while, Tylenol p.r.n. if needed Patient has a big mass on the scalp, he stated he got the mass after he had a hit from a tree branch-looks calcified nodule; recommend outpatient follow up Patient has no medical symptoms at this point; as hospitalist team we will continue to monitor the patient Destinee Noe PGY-1 Date of Service: Feb 04, 2025 Billing Provider: SATHISH العراقي MD Common Visit Codes: [id number] INP/OBS CARE (MOD) RUEL CUNNINGHAMHNAVI, RES Feb 04, 2025 18:21 SATHISH العراقي MD Feb 10, 2025 14:03
[2025-02-04 20:00] VITALS: BP 130/85; PULSE 108; RESP 18; TEMP 98.6; O2SAT 96
[2025-02-05 07:30] VITALS: BP 117/60; PULSE 63; RESP 16; TEMP 97.6; O2SAT 97
[2025-02-05 09:01] LABS: MEAN PLATELET VOLUME 8.3 FL (7.4-10.4); RED CELL DISTRIBUTION WIDTH 14.7 % (11.5-14.5)
[2025-02-05 09:16] LABS: INR 1.0 INR
[2025-02-05 09:21] LABS: HBSAG SCREEN Negative (Negative); HEP B CORE AB, IGM Negative (Negative); HEP B CORE AB, TOT Negative (Negative)
[2025-02-05 09:35] LABS: CREATININE 0.80 MG/DL (0.60-1.10); PHOSPHORUS 3.8 MG/DL (2.3-4.5); TOTAL CARBON DIOXIDE 26.2 MMOL/L (24-32); eCRCL 170 ML/MIN; eGFR > 90 ML/MIN
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
[2025-02-05 19:45] VITALS: RESP 18; O2SAT 97
[2025-02-05 19:48] VITALS: BP 128/76; PULSE 94; RESP 18; TEMP 98.4; O2SAT 97
[2025-02-06 07:00] VITALS: RESP 16; O2SAT 97
[2025-02-06 08:00] VITALS: BP 86/50; PULSE 67; RESP 16; TEMP 97; O2SAT 97
[2025-02-06 10:43] LABS: MEAN PLATELET VOLUME 7.9 FL (7.4-10.4); RED CELL DISTRIBUTION WIDTH 14.8 % (11.5-14.5)
[2025-02-06 10:49] LABS: INR 1.0 INR
[2025-02-06 10:56] LABS: CREATININE 0.93 MG/DL (0.60-1.10); PHOSPHORUS 3.8 MG/DL (2.3-4.5); TOTAL CARBON DIOXIDE 30.3 MMOL/L (24-32); eCRCL 146 ML/MIN; eGFR > 90 ML/MIN
--- NOTE | 2025-02-06 18:48 | PROGRESS NOTE ---
Daily Progress Note Providers to CC ~ Antibiotic Timeout Antibiotic Ordered?: No Subjective Patient was seen in Behavioral Health unit , cooperated well looks comfortable able to ambulate, no new concerns Objective Vital Signs Date Time Temp Pulse Resp B/P (MAP) Pulse Ox O2 Delivery O2 Flow Rate FiO2 02/06/25 13:15 16 02/06/25 08:00 97.0 67 86/50 (62) 97 Room Air Result Diagram: 02/06/25 1028 02/06/25 1028 General-patient not in any acute distress, alert awake , obese age-appropriate, looks comfortable HEENT-atraumatic normocephalic, neck supple without elevated JVD, no thyromegaly No lymphadenopathy bilaterally. Eyes-no icterus or pallor seen in eyes Chest-clear to auscultation bilaterally, breathing nonlabored no tachypnea, no wheezing, no crepitation, no crackles. Heart-S1-S2 normal, regular heart rate no murmur Abdomen bowel sounds positive on auscultation, soft nondistended nontender no guarding, no rigidity Skin no active skin rash Neurology-grossly intact, nonfocal alert awake, cooperated during physical examination Extremity- no pedal edema able to move all 4 extremities, ambulates Coagulation Studies Laboratory Tests Test 02/06/25 10:28 Prothrombin Time 10.4 SECONDS (9.0-12.0) INR International Normalized Ratio 1.0 INR Coagulation Comments Problem\Assessment\Plan History of MDD Generalized anxiety disorder PTSD Bipolar disorder Manage as per psychiatric team Alcohol use disorder, Tobacco use disorder Methamphetamine use -patient is on CIWA protocol Scheduled nicotine patch Patient stated that he has a couple of episodes of headache once a while, Tylenol p.r.n. if needed Patient has no medical symptoms at this point; as hospitalist team we will continue to monitor the patient Date of Service: Feb 06, 2025 Billing Provider: ELIEZER MONTALVO MD Common Visit Codes: [id number] INP/OBS CARE(LOW) ELIEZER MONTALVO MD Feb 06, 2025 18:48
[2025-02-06 19:00] VITALS: RESP 18; O2SAT 99
[2025-02-06 19:52] VITALS: BP 145/80; PULSE 97; RESP 18; TEMP 97.8; O2SAT 99
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
[2025-02-07 07:00] VITALS: RESP 12; O2SAT 100
[2025-02-07 07:48] LABS: MEAN PLATELET VOLUME 8.2 FL (7.4-10.4); RED CELL DISTRIBUTION WIDTH 14.8 % (11.5-14.5)
[2025-02-07 07:55] LABS: INR 1.0 INR
[2025-02-07 08:00] VITALS: BP 104/66; PULSE 64; RESP 12; TEMP 98.4; O2SAT 100
[2025-02-07 08:20] LABS: CREATININE 0.92 MG/DL (0.60-1.10); PHOSPHORUS 4.2 MG/DL (2.3-4.5); TOTAL CARBON DIOXIDE 30.3 MMOL/L (24-32); eCRCL 148 ML/MIN; eGFR > 90 ML/MIN
[2025-02-07 19:00] VITALS: RESP 20; O2SAT 98
[2025-02-07 19:17] VITALS: BP 140/90; PULSE 102; RESP 20; TEMP 97.9; O2SAT 98
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
[2025-02-08 07:00] VITALS: RESP 12; O2SAT 98
[2025-02-08 07:42] LABS: MEAN PLATELET VOLUME 8.2 FL (7.4-10.4); RED CELL DISTRIBUTION WIDTH 15.0 % (11.5-14.5)
[2025-02-08 07:50] LABS: INR 1.0 INR
[2025-02-08 07:55] LABS: CREATININE 0.88 MG/DL (0.60-1.10); PHOSPHORUS 4.2 MG/DL (2.3-4.5); TOTAL CARBON DIOXIDE 27.6 MMOL/L (24-32); eCRCL 155 ML/MIN; eGFR > 90 ML/MIN
[2025-02-08] MEDS: BUPROPION HCL 150MG XL 24 HR 150 MG TAB PO SCH (07:55)
[2025-02-08 08:18] VITALS: BP 124/82; PULSE 80; RESP 12; TEMP 97.3; O2SAT 98
--- NOTE | 2025-02-08 10:59 | PROGRESS NOTE ---
Progress Note Dictate Providers to CC ~ Central Line/PICC still needed: N\A Antibiotic Ordered?: No Objective Vitals Vital Signs Date Time Temp Pulse Resp B/P (MAP) Pulse Ox O2 Delivery O2 Flow Rate FiO2 02/08/25 08:18 97.3 80 12 124/82 (96) 98 Room Air Lab Results: 02/08/25 0703 02/08/25 0703 Coagulation Studies Laboratory Tests Test 02/08/25 07:03 Prothrombin Time 10.3 SECONDS (9.0-12.0) INR International Normalized Ratio 1.0 INR Coagulation Comments Problem\Assessment\Plan Problems/Diagnosis: (1) MDD (major depressive disorder), recurrent episode, severe (2) PTSD (post-traumatic stress disorder) (3) Polysubstance (excluding opioids) dependence, daily use (4) Alcohol use disorder Psychiatrist's Progress Note Date of Service: Feb 08, 2025 Notes Mr Peyman Uriostegui is a 25yo male admitted on 0 For Suicidal ideation, he reached out to mobile crisis team saying that he wants to jump in front of a car to kill himself because he feels hopeless. He has had previous attempts including running into traffic, almost jumping off a bridge. He has previously been held in psychiatric units in [facility] for dangerous to self. He has been struggling with depression anxiety for many years history of alcoholism hasn't been drinking for the past few days is also trying to detox and getting to rehab. He is a tall obese male. Dark hair shaved head with ball cap. He has a mustache. Green scrubs. Tattoos bilaterally. Was admitted in ER for ETOH withdrawal then after he detoxed he says that he broke down at [employer] while talking with a counselor. Carson suicidal. The more he thought about his life and everything the more he wanted to jump in front in traffic. 'feel like I'm alone. every time I try one little thing fucks everything up.' Was supposed to start school. Kicked out of [facility] d/t ETOH. Started drinking and drugs. 'went off the rails.' 'I just fuck it up.' Was trying to go for welding. Dealing with Crystal Mounter. Wants to go back to [facility]. Not thinking about ETOH or [place] now. 'The meds are balancing me out'. Not currently SI. Mood is less depressed. For years used to think when not drunk he was mean. But when drunk he is 'hortencia funny.' Carson needed alcohol to be that person. 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 Sleep is better. Not having nightmares. Gets sleep paralysis since he was little. See [facility] when he is going to sleep sometimes. Mental Status Eye contact: Fair; Behavior: Cooperative. Calm. Speech: Fairly Regular. Mood: Less depressed and anxious. Affect: Constricted with brightening. Thought process: No disorganization, Circumstantial at times. Denies Paranoid Delusions. Thought Content: immediate needs/medications/Discharge. Cognition: A&O X4; Insight: Fair; Judgment: Fair but impulsive; SI Denies/HI Denies, AH Denies/VH Denies Results Of any Diagn. Testing Reviewed Labs Treatment Patient doing much better overall with implementation of medications. We will leave things as is and continue to allow medications a chance to reach full effect as they were just increased. He would like to get back in with [facility]. Buproprion XL 150 mg po qd Lyrica 300mg BID Prazosin 2mg hs Seroquel 200mg HS Alcohol Abuse: Replace Thiamine, Folic acid and Multivit. Lyrica Tobacco use disorder: Replace nicotine patch, prn nicotine lozenges Monitoring by Staff, Milieu, Group, and Individual counseling as needed -- According to the [place] Suicide Assessment the above named patient is on Q 15 MINUTE CHECKS. VOL--DTS-- The patient does not have a good safety plan for discharge at this time. We are still titrating medications to an effective dose while maintaining a therapeutic environment to prevent decompensation and readmission. DISCHARGE UNSURE AT THIS TIME. DISCHARGE [facility]. REVIEW OF Clinical notes [X ] RN notes [X] PCT documentation [X] SW notes [X] Labs [ X] Medications [X] Care trends/care activity [X] Vitals [X] DISCUSSION WITH plastic products sales representative [X] CODING VISIT-PSYCHIATRY Date of Service: Feb 08, 2025 Billing Provider: JASMEET FELDER Psych Common Visit Codes: [id number] INP/OBS CARE(Mod) JASMEET FELDER Feb 08, 2025 10:59
--- NOTE | 2025-02-08 13:35 | PROGRESS NOTE- Residence ---
Progress Note - Resident Providers to CC Resident Creating Document: KAREN MARTINS, CEE ~ Antibiotic Timeout Antibiotic Ordered?: No Subjective Seen and examined the patient at bedside. He endorses swelling over the parietal region and he reports that he has calcium deposits over the head. He reports headache occasionally. Objective Vital Signs Date Time Temp Pulse Resp B/P (MAP) Pulse Ox O2 Delivery O2 Flow Rate FiO2 02/08/25 08:18 97.3 80 12 124/82 (96) 98 Room Air Result Diagram: 02/08/25 0703 02/08/25 0703 General-patient not in any acute distress, alert awake , obese age-appropriate, looks comfortable HEENT-atraumatic normocephalic, neck supple without elevated JVD, no thyromegaly No lymphadenopathy bilaterally.5x4 cm swelling over the parietal region. Eyes-no icterus or pallor seen in eyes Chest-clear to auscultation bilaterally, breathing nonlabored no tachypnea, no wheezing, no crepitation, no crackles. Heart-S1-S2 normal, regular heart rate no murmur Abdomen bowel sounds positive on auscultation, soft nondistended nontender no guarding, no rigidity Skin no active skin rash Neurology-grossly intact, nonfocal alert awake, cooperated during physical examination. Extremity- no pedal edema able to move all 4 extremities, ambulates Coagulation Studies Laboratory Tests Test 02/08/25 07:03 Prothrombin Time 10.3 SECONDS (9.0-12.0) INR International Normalized Ratio 1.0 INR Coagulation Comments Advance Care Planning Advanced Care plannin - 30 Minutes Plan Plan Generalized anxiety disorder PTSD Bipolar disorder Manage as per psychiatric team Alcohol use disorder, Tobacco use disorder Methamphetamine use -patient is on CIWA protocol Scheduled nicotine patch Swelling over the head, parietal region suggestive of possible calcium deposits Follow up with PCP and surgeon in outpatient Added ibuprofen 400 mg p.o. t.i.d. p.r.n. Hospitalist team will continue to monitor the patient for medical needs Karen Martins IM resident, PGY2 Date of Service: Feb 08, 2025 Billing Provider: SATHISH العراقي MD Common Visit Codes: [id number] INP/OBS CARE(MOD) KAREN MARTINS, CEE Feb 08, 2025 13:35 SATHISH العراقي MD Feb 10, 2025 14:03
[2025-02-08 19:00] VITALS: RESP 20; O2SAT 99
[2025-02-08 20:00] VITALS: BP 130/88; PULSE 85; RESP 20; O2SAT 99
[2025-02-09 07:16] VITALS: RESP 18; O2SAT 97
[2025-02-09 07:36] VITALS: BP 133/80; PULSE 91; RESP 16; TEMP 97.7; O2SAT 98
--- NOTE | 2025-02-09 12:39 | PROGRESS NOTE ---
Progress Note Dictate Providers to CC ~ Central Line/PICC still needed: N\A Antibiotic Ordered?: No Objective Vitals Vital Signs Date Time Temp Pulse Resp B/P (MAP) Pulse Ox O2 Delivery O2 Flow Rate FiO2 02/09/25 07:36 97.7 91 16 133/80 (97) 98 Room Air Lab Results: 02/08/25 0703 02/08/25 0703 Coagulation Studies Laboratory Tests Test 02/08/25 07:03 Prothrombin Time 10.3 SECONDS (9.0-12.0) INR International Normalized Ratio 1.0 INR Coagulation Comments Problem\Assessment\Plan Problems/Diagnosis: (1) MDD (major depressive disorder), recurrent episode, severe (2) PTSD (post-traumatic stress disorder) (3) Polysubstance (excluding opioids) dependence, daily use (4) Alcohol use disorder Psychiatrist's Progress Note Date of Service: Feb 09, 2025 Notes Mr Peyman Uriostegui is a 25yo male admitted on 0 For Suicidal ideation, he reached out to mobile crisis team saying that he wants to jump in front of a car to kill himself because he feels hopeless. He has had previous attempts including running into traffic, almost jumping off a bridge. He has previously been held in psychiatric units in [facility] [place] for dangerous to self. He has been struggling with depression anxiety for many years history of alcoholism hasn't been drinking for the past few days is also trying to detox and getting to rehab. He is a tall obese male. Dark hair shaved head with ball cap. Has a large growth on top of his head. He has a mustache. Green scrubs. Tattoos bilaterally. Doing good. A little 'outbursts.' Cursing, being loud and mad and taking it personally. Extra mad when they brought new tray and it was the same thing. Deescalated took meds and watch TV then went to sleep. Talked about sports. No real depression today. Definitely no SI today. 'not right now.' Feeling antsy. Makes him feel like he's in [facility]dc. Wants to go back to [facility]. Sleeping okay. 'pretty good.' Waking up early and ready for the day. Mental Status Eye contact: Fair; Behavior: Cooperative. Calm. Speech: Fairly Regular. Mood: Less depressed and anxious. Affect: Constricted with brightening. Thought process: No disorganization, Circumstantial at times. Denies Paranoid Delusions. Thought Content: immediate needs/medications/Discharge. Cognition: A&O X4; Insight: Fair; Judgment: Fair but impulsive; SI Denies/HI Denies, AH Denies/VH Denies Results Of any Diagn. Testing Reviewed Labs Treatment Patient doing much better overall with implementation of medications. We will leave things as is and continue to allow medications a chance to reach full effect as they were just increased. He would like to get back in with [facility]. Buproprion XL 150 mg po qd Lyrica 300mg BID Prazosin 2mg hs Seroquel 200mg HS Alcohol Abuse: Replace Thiamine, Folic acid and Multivit. Lyrica Tobacco use disorder: Replace nicotine patch, prn nicotine lozenges Monitoring by Staff, Milieu, Group, and Individual counseling as needed -- According to the [place] Suicide Assessment the above named patient is on Q 15 MINUTE CHECKS. VOL--DTS-- The patient does not have a good safety plan for discharge at this time. We are still titrating medications to an effective dose while maintaining a therapeutic environment to prevent decompensation and readmission. DISCHARGE UNSURE AT THIS TIME. DISCHARGE [facility]. REVIEW OF Clinical notes [X ] RN notes [X] PCT documentation [X] SW notes [X] Labs [ X] Medications [X] Care trends/care activity [X] Vitals [X] DISCUSSION WITH claims correspondence clerk [X] CODING VISIT-PSYCHIATRY Date of Service: Feb 09, 2025 Billing Provider: JASMEET FELDER Psych Common Visit Codes: [id number] INP/OBS CARE(Low) JASMEET FELDER Feb 09, 2025 12:39
[2025-02-09 19:00] VITALS: RESP 18; O2SAT 98
[2025-02-09 20:00] VITALS: BP 137/90; PULSE 96; RESP 18; TEMP 97.7; O2SAT 98
[2025-02-10 07:04] VITALS: RESP 18; O2SAT 97
[2025-02-10] MEDS: magnesium hydroxide 30ml (MOM) UD suspension PO PRN (07:04)
[2025-02-10 07:55] VITALS: BP 126/72; PULSE 75; RESP 16; TEMP 97.2; O2SAT 98
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
--- NOTE | 2025-02-10 18:54 | PROGRESS NOTE- Residence ---
Progress Note - Resident Providers to CC Resident Creating Document: FRANCIE MCGILL RES ~ Antibiotic Timeout Antibiotic Ordered?: No Subjective Patient was seen at the mental health unit entertainment room, he complained about his one big irregular shape of the calcified mass over his left parietal area of his head showing multiple bumps over the huge protrusion. He stated that he was seeing Dr Pizano PCP at [facility] who transferrin out to the neurosurgeon for the possible operation but he did not do the procedure with the reason of requirements of large big skin graft and has been transferred to [facility] were they could not take the patient in. The CT head imaging was done which did not show any erosion/invasion into the skull bone and cerebral matter. He denies about any focal neurologic deficits/seizure/visual problems. He complains about occasional headaches over the mass. Objective Vital Signs Date Time Temp Pulse Resp B/P (MAP) Pulse Ox O2 Delivery O2 Flow Rate FiO2 02/10/25 15:24 16 02/10/25 07:55 97.2 75 126/72 (90) 98 Room Air Result Diagram: 02/08/2570202/08/25 07 Vitals were stable at the moment with temp 97.2 F, RI 75/minute, RR 16/minute, BP 126/72 mm Hg, pulse oximetry 98% on room air. On exam, General: Well alert, well oriented, not confused, not agitated, not in acute distress, well cooperated during the physical. HEENT:one big irregular shape of the calcified mass over his left parietal area of his head showing multiple bumps over the huge protrusion, not tender on touch and palpation and no attached to the base of the scalp. Conjunctive are pink, sclerae clear, no icterus, pupil is equal in both sides, reactive to light, no ear discharge, no pharyngeal erythema or an edema, mouth and lips are moist. Neck: Supple, no JVD, no lymphadenopathy and thyromegaly. Lungs:Equal air entry on both lungs, no additional sounds Heart: S1-S2 regular sinus rhythm and, regular rate, no gallops, no rubs, no murmurs Abdomen: No visible peristalsis, Bowel sounds present on auscultation, soft, nontender, no guarding, no rigidity Extremities: No obvious deformities, no pitting edema bilaterally, capillary refill intact, able to wiggle toes both sides, peripheral pulsations are intact on both sides TROUBLE DISPATCHER: No focal neurological deficits, no motor and sensory weakness in all 4 extremities, could move all 4 extremities Musculoskeletal: No joint swelling, deformities, inflammations, and no scoliosis and back tenderness Skin: No active skin lesions and rashes Coagulation Studies Laboratory Tests Test 02/08/25 07:03 Prothrombin Time 10.3 SECONDS (9.0-12.0) INR International Normalized Ratio 1.0 INR Coagulation Comments Assessment Assessment Eight hundred twenty 5 years [place] [id number] hold with a feeling of hopeless with the underlying history of schizophrenia, bipolar disorder, depression, anxiety, PTSD, suicide attempts x two times, history of self-harm and violence history, following violation history, substance abuse-nicotine cigarettes, alcohol, cannabis, stimulant cocaine and meth, nitro outside, DUI history. Plan Plan # major depressive disorder, recurrent # Generalized anxiety disorder # PTSD # Bipolar disorder # polysubstance abuse disorder (Alcohol use disorder, Tobacco use disorder, Methamphetamine use) -Manage as per psychiatric team -patient is on CIWA protocol -Scheduled nicotine patch # irregular shape left parietal calcified mass over the head, -Follow up with PCP and surgeon in outpatient -Added ibuprofen 400 mg p.o. t.i.d. p.r.n. which should be alternative with the Tylenol -educated about the persistent long-term usage of NSAIDs with the risks of having GI bleeding/upset, kidney injury and cardiovascular disorder Disposition: Hospitalist team will follow the patient during hospitalization, you are welcome to questions and medical consultation, appreciate for letting us involved in patient's care. Resident MD attestation: Patient was seen, examined and discussed with attending , Dr. Evelyn MCGILL MD Internal Medicine Resident, PGY3 [facility] Date of Service: Feb 10, 2025 Billing Provider: SATHISH العراقي MD, TIN, RES Feb 10, 2025 18:53
[2025-02-10 19:00] VITALS: RESP 20; O2SAT 100
[2025-02-10] MEDS: ibuprofen tablet 400 MG TABLET PO PRN (19:12)
[2025-02-10 20:00] VITALS: BP 156/81; PULSE 88; RESP 20; TEMP 98.1; O2SAT 99
[2025-02-11 07:00] VITALS: RESP 18; O2SAT 100
[2025-02-11 08:00] VITALS: BP 131/72; PULSE 73; RESP 18; TEMP 97.1; O2SAT 100
[2025-02-11] MEDS: docusate sod 100mg capsule PO SCH (08:02)
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
[2025-02-11] MEDS ORDERED: PRAZ1CAP5 PO (16:25)
[2025-02-11] MEDS ORDERED: PREG300C20 PO (16:25)
[2025-02-11] MEDS ORDERED: BUPR-94 PO (16:25)
[2025-02-12] MEDS ORDERED: QUET25TA PO (05:03)
[2025-02-12] MEDS ORDERED: PRAZ2CAP2 PO (05:03)
[2025-02-12] MEDS ORDERED: QUET-1 PO (05:03)
[2025-02-12] MEDS ORDERED: PREG300C PO (05:03)
[2025-02-12] MEDS ORDERED: BUPR-726 PO (05:03)
== END 2025-02-11 16:05 | disposition left against medical advice (07) | DRG 751 ==
LOC: ADULT MH 11:16
PROVIDERS: ADMIT Psychiatry & Neurology Psychiatry; ATTEND Psychiatry & Neurology Psychiatry
PROC: GZHZZZZ Group Psychotherapy (ICD-10-PCS; principal; 2025-02-03)
PROC: GZ51ZZZ Individual Psychotherapy, Behavioral (ICD-10-PCS; 2025-02-08)
DX: F33.2 Major depressive disorder, recurrent severe without psychotic features (principal); Z59.01 Sheltered homelessness; F41.1 Generalized anxiety disorder; F43.10 Post-traumatic stress disorder, unspecified; F10.239 Alcohol dependence with withdrawal, unspecified; F17.210 Nicotine dependence, cigarettes, uncomplicated; F40.10 Social phobia, unspecified; F20.9 Schizophrenia, unspecified; F19.20 Other psychoactive substance dependence, uncomplicated; Z79.899 Other long term (current) drug therapy; Z91.018 Allergy to other foods
CPT/HCPCS: 36415; 80053; 80061; 81003; 82150; 82248; 82607; 83036; 83690; 83735; 84100; 84443; 85025; 85610; 86704; 86705; 87081; 87340; 93005; 99285; Q0161; Q0177